=== PATIENT | female | born 1995 | race Caucasian/White ===

== ENCOUNTER → 2018-03-13 13:47 | Outpatient (CLI) | payer OTHER, SELFPAY ==
[2018-03-13 14:58] LABS: Absolute Lymphocyte Count 1.61 X10^3/ul (0.83-4.51); Basophil# 0.02 X10^3/uL; Basophil% 0.2 % (0-1); Eosinophil# 0.04 X10^3/uL; Eosinophils% 0.5 % (0-5); Hematocrit 38.6 % (37-47); Hemoglobin 12.9 g/dl (12.0-15.0); Lymphocyte # 1.61 X10^3/ul (4.0); Mean Corp Hgb Conc 33.4 g/gl (32-36); Mean Corpuscular Hgb 29.9 pg (27.0-32.0); Mean Corpuscular Volume 89.6 fL (81-99); Mean Platelet Vol. 9.8 fl (6.2-12.0); Monocyte# 0.32 X10^3/uL; Neutrophil # 6.03 X10^3/uL (2.7-7.7); Neutrophil % 75.1 % (47-70); Platelet Count 268 K/mm3 (150-450); RBC Distribution Width CV 13.3 % (11.6-14.6); RBC Distribution Width SD 43.3 fl (35.1-43.9); Red Blood Count 4.31 M/mm3 (4.2-5.4)
[2018-03-13 15:02] LABS: POSITIVE COUNT NO; POSITIVE DIFFERENTIAL NO; POSITIVE MORPHOLOGY NO
[2018-03-13 16:10] LABS: HIV - WCH Non-Reactive (Nonreactive); Rubella IgG 72.3 IU/mL
[2018-03-13 19:39] LABS: Chlamydia Trachomatis by PCR Negative (Negative); Neisserai gonorrhoeae by PCR Negative (Negative); Probe Check PASS; Sample Adequacy Control PASS; Specimen Processing Control PASS
[2018-03-14 09:28] LABS: HEPATITIS B SURFACE AG Negative (Negative)
[2018-03-20 02:28] LABS: Rapid Plasmin Reagin (RPR) NONREACTIVE (NONREACTIVE)
== END ==
PROVIDERS: Family Provider Family Medicine; PCP Family Medicine; Visit Provider Obstetrics & Gynecology
DX: Z34.90 Encounter for supervision of normal pregnancy, unspecified, unspecified trimester (principal); Z12.4 Encounter for screening for malignant neoplasm of cervix
CPT/HCPCS: 36415; 85025; 86592; 86703; 86762; 86850; 86900; 87086; 87088; 87340; 87491; 87591; 88175; G0145

== ENCOUNTER → 2018-04-13 13:30 | Outpatient (CLI) | payer OTHER, SELFPAY | PROVIDERS: Family Provider Nurse Practitioner Family; PCP Nurse Practitioner Family; Referring Provider Obstetrics & Gynecology; Visit Provider Obstetrics & Gynecology | DX: Z34.81 Encounter for supervision of other normal pregnancy, first trimester (principal); Z31.430 Encounter of female for testing for genetic disease carrier status for procreative management | CPT/HCPCS: 36415 ==

== ENCOUNTER → 2018-05-26 09:08 | Outpatient (CLI) | payer OTHER, SELFPAY ==
--- NOTE | 2018-05-26 09:12 | US_ITS ---
STUDY: SECOND AND THIRD TRIMESTER OBSTETRICAL ULTRASOUND REASON FOR EXAM: Female, 22 years old. Routine survey. LMP: January 01, 2018. TECHNIQUE: Transabdominal TECHNICAL QUALITY: Adequate. PRIOR ULTRASOUND: None. FINDINGS: There is a single intrauterine fetus. The fetus is in a cephalic presentation. There is demonstrated cardiac activity with a heart rate of 153 bpm. There is a normal amniotic fluid volume. The largest amniotic fluid pocket measures 3.5 cm x 3.5 cm. The amniotic fluid index (JASON) is normal. The placenta is posterior in location and is not low lying. There are Grade 0 placental changes. The cervix measures 3.2 cm in length. The bilateral adnexal regions are normal. BIOMETRY: BPD: 4.69 cm: 20 weeks, 2 days HC: 18.01 cm: 20 weeks, 4 days AC: 15.15 cm: 20 weeks, 3 days FL: 3.27 cm: 20 weeks, 2 days CI: 74% FL/BPD: 70% FL/HC: FL/AC: 22% HC/AC: 1.19 age by current US: 20 weeks, 3 days. [place] by current US: October 10, 2018. Estimated weight: 345 grams, +/- 50 grams, 25 %. Age by LMP: 20 weeks, 5 days. [place] by LMP: October 08, 2018. ANATOMY: Gender: Female Cranium: Normal lateral ventricles. Normal choroid plexus. Normal cerebellum. Normal cisterna magna. Normal face, nose and lips. Chest: Normal 4-chamber heart. Abdomen/Pelvis: Normal diaphragm. Normal stomach. Normal abdominal wall. Normal cord insertion. Normal 3 vessel cord. Normal kidneys. Normal bladder. Spine: Normal cervical spine. Normal thoracic spine. Normal lumbar spine. Normal sacrum. Extremities: Normal bilateral upper extremities. Normal bilateral lower extremities. US/OB Anatomy Scan IMPRESSION: Single live intrauterine gestation with a mean gestational age of 20 weeks and 3 days. Electronically Signed: Nas Ferrell MD at 11:19 EST Tel [phone], Service support ,
--- NOTE | 2018-05-26 09:50 | US_ITS ---
STUDY: ULTRASOUND BREAST - RIGHT REASON FOR EXAM: Female, 22 years old. Palpable lump in the right breast. The patient is . TECHNIQUE: Axial and longitudinal images of the RIGHT breast were performed with a high resolution ultrasound transducer. COMPARISON: None. FINDINGS: RIGHT Breast: The patient presented with a palpable lump along the medial midportion of the breast. There is homogeneous fibroglandular tissue. No solid or cystic mass lesion is seen. US/Breast Limited Unilateral IMPRESSION: No sonographic abnormality is present. ASSESSMENT CATEGORY: BIRADS Category 1: Negative. A letter regarding these results will be sent to the patient by the facility within 30 days. Electronically Signed: Nas Ferrell MD at 13:12 EST Tel [phone], Service support ,
== END ==
PROVIDERS: Referring Provider Obstetrics & Gynecology; Visit Provider Obstetrics & Gynecology
DX: O99.89 Other specified diseases and conditions complicating pregnancy, childbirth and the puerperium (principal); N63.10 Unspecified lump in the right breast, unspecified quadrant; Z36.89 Encounter for other specified antenatal screening; Z3A.20 20 weeks gestation of pregnancy
CPT/HCPCS: 76642; 76805

== ENCOUNTER 2018-06-03 14:06 | Outpatient (CLI) | payer OTHER, SELFPAY ==
[2018-06-03 14:15] VITALS: BP 109/72; PULSE 88; RESP 18; TEMP 36.7; O2SAT 98; BMI 22.3
[2018-06-03] MEDS: Dextrose 5%-Lactated Ringers 1,000 ML 999 ML IV (14:21)
[2018-06-03] MEDS: Ondansetron 4 MG/2 ML Vial IV (14:21)
[2018-06-03] MEDS: proMETHazine 25 MG/ML Syringe 12.5 MG IV (15:32)
--- NOTE | 2018-06-03 16:28 | NURSING ---
A&O X3, STABLE, TRANSPORTED TO OB VIA WHEELCHAIR, REPORT GIVEN TO RN IN OB.
[2018-06-03] MEDS: Lactated Ringers 1,000 ML 1000 ML IV (16:35)
[2018-06-03 16:37] VITALS: BP 97/56; PULSE 83; RESP 15; TEMP 37.3; O2SAT 95
[2018-06-03 16:38] VITALS: BMI 22.8
--- NOTE | 2018-06-03 16:40 | NURSING ---
FHR 159; pt states that her n/v is better
[2018-06-03 17:06] LABS: Hematocrit 35.8 % (37-47); Mean Corp Hgb Conc 33.5 g/gl (32-36); Mean Corpuscular Hgb 30.1 pg (27.0-32.0); Mean Corpuscular Volume 89.7 fL (81-99); Mean Platelet Vol. 9.3 fl (6.2-12.0); Platelet Count 219 K/mm3 (150-450); RBC Distribution Width CV 13.7 % (11.6-14.6); Red Blood Count 3.99 M/mm3 (4.2-5.4); White Blood Count 12.7 K/mm3 (4.4-11.0)
[2018-06-03 17:08] LABS: Scan Indicated on CBC? Y/N NO
[2018-06-03 17:23] LABS: Color, Urine Yellow (Yellow); Glucose, Dipstick 1000 mg/dl (Normal); Leukocyte Esterase-Dipstick Negative /ul (Negative); Nitrite-Dipstick Negative (Negative); Occult Blood-Urine Negative /ul (Negative); Protein-Dipstick Negative (Negative); Specific Gravity, Urine 1.015 (1.002-1.030); Urine Bilirubin Dipstick Negative (Negative); Urine Clarity Clear (Clear); Urine Urobilinogen Normal (Normal)
[2018-06-03] MEDS: Metoclopramide 10 MG/2 ML Vial IV (17:30)
[2018-06-03 17:42] LABS: Ketone-Dipstick 150 mg/dl (Negative)
[2018-06-03 17:51] LABS: BUN 9 mg/dL (7-18); Estimated Creatinine Clearance 120.63 ml/min; Glucose 126 mg/dL (74-106)
[2018-06-03 17:52] LABS: ALB/GLOB Ratio 0.8 RATIO (0.9-2.4); AST(SGOT) 11 U/L (15-37); Alanine Aminotransfer ALT/SGPT 17 U/L (13-56); Alkaline Phosphatase 56 U/L (45-117); Anion Gap 9 (5-15); BUN/Creat Ratio 14.9 RATIO (10-20); Calcium,Total 8.4 mg/dL (8.5-10.1); Chloride 106 mmol/L (98-107); EST Glomerular Filtration Rate 130 mL/min (>60); Est Glom Filt Rate - Afr Amer 157 mL/min (>60); Globulin 3.6 g/dL (2.2-4.2); Potassium 3.5 mmol/L (3.5-5.1); Protein, Total 6.6 g/dL (6.4-8.2); Sodium Level 140 mmol/L (136-145)
--- NOTE | 2018-06-03 18:14 | NURSING ---
1800 pt feeling better would like to go home; tolerated ice chips; discharge order received; sl dc'ed; waiting for ride
--- NOTE | 2018-06-05 02:22 | OB.TRI.NOTE ---
- Problem List (1) Nausea and vomiting during Status: Acute Comment: phenergan History of Present Illness Date of Service: 06/03/18 Reason For Visit: DEHYDRATION,HYPEREMESIS History of Present Illness: presented with nause and vomiting, refractory to initial antiemetics Allergies No Known Allergies Allergy (Verified 05/08/18 10:28) - Pertinent Past Medical History Surgical History: Past Surgical History (Last Reviewed 05/08/18 @ 10:28 by Chery Miguel) delivery delivered Laboratory Studies: Laboratory Tests 06/03/18 06/03/18 06/03/18 Range/Units 16:45 16:45 16:45 WBC 12.7 H (4.4-11.0) K/mm3 RBC 3.99 L (4.2-5.4) M/mm3 Hgb 12.0 (12.0-15.0) g/dl Hct 35.8 L (37-47) % MCV 89.7 (81-99) fL MCH 30.1 (27.0-32.0) pg MCHC 33.5 (32-36) g/gl RDW 13.7 (11.6-14.6) % RDW Differential 45.0 H (35.1-43.9) fl Plt Count 219 (150-450) K/mm3 MPV 9.3 (6.2-12.0) fl Sodium 140 (136-145) mmol/L Potassium 3.5 (3.5-5.1) mmol/L Chloride 106 (98-107) mmol/L Carbon Dioxide 25.0 (21.0-32.0) mmol/L Anion Gap 9 (5-15) BUN 9 (7-18) mg/dL Creatinine 0.60 (0.55-1.02) mg/dL Estim Creat Clear Calc 120.63 ml/min Est GFR (MDRD) Af Amer 157 (>60) mL/min Est GFR (MDRD) Non-Af 130 (>60) mL/min BUN/Creatinine Ratio 14.9 (10-20) RATIO Glucose 126 H (74-106) mg/dL Calcium 8.4 L (8.5-10.1) mg/dL Total Bilirubin 0.50 (0.20-1.00) mg/dL AST 11 L (15-37) U/L ALT 17 (13-56) U/L Alkaline Phosphatase 56 (45-117) U/L Total Protein 6.6 (6.4-8.2) g/dL Albumin 3.0 L (3.2-5.0) g/dL Globulin 3.6 (2.2-4.2) g/dL Albumin/Globulin Ratio 0.8 L (0.9-2.4) RATIO Urine Color Yellow (Yellow) Urine Clarity Clear (Clear) Urine pH 6.0 (5.0 - 8.0) Ur Specific [place] 1.015 (1.002-1.030) Urine Protein Negative (Negative) mg/dl Urine Glucose (UA) 1000 H (Normal) mg/dl Urine Ketones 150 H (Negative) mg/dl Urine Occult Blood Negative (Negative) /ul Urine Nitrite Negative (Negative) Urine Bilirubin Negative (Negative) mg/dL Urine Urobilinogen Normal (Normal) mg/dl Ur Leukocyte Esterase Negative (Negative) /ul Physical Exam Vitals: Vital Signs Temp Pulse Resp BP Pulse Ox 99.1 F 83 15 97/56 L 95 06/03/18 16:37 06/03/18 16:37 06/03/18 16:37 06/03/18 16:37 06/03/18 16:37 NST - FHR Rate Baby A Baseline: 150s Impression/Plan nausea and vomiting of - improved with additional IVFs and reglan. received phenergan and zofran at infusion suite. dc home.
--- OUTSIDE RECORDS SUMMARY | 2018-07-29 23:51 | XMS RPT_ITS ---
:1995 Author Organization OHIP Support Name Relationship Address Phone LOREE MAZARIEGOS Unavailable [address] + [place] [address] AVELINO, STEFANO/ALEIDA Unavailable Unavailable + UE Unavailable Unavailable Unavailable LOREE MAZARIEGOS Unavailable [address] + [place] [address] AVELINO, STEFANO/ALEIDA Unavailable . + ., [place] . UE Unavailable Unavailable Unavailable LOREE MAZARIEGOS Unavailable [address] + [place] [address] AVELINO, STEFANO/ALEIDA Unavailable Unavailable + UE Unavailable Unavailable Unavailable LOREE MAZARIEGOS Unavailable [address] + [place] [address] AVELINO, STEFANO/ALEIDA Unavailable Unavailable + UE Unavailable Unavailable Unavailable LOREE MAZARIEGOS Unavailable [address] + [place] [address] AVELINO, STEFANO/ALEIDA Unavailable Unavailable + UE Unavailable Unavailable Unavailable LOREE MAZARIEGOS Unavailable [address] + [place] [address] AVELINO, STEFANO/ALEIDA Unavailable Unavailable + UE Unavailable Unavailable Unavailable LOREE MAZARIEGOS Unavailable [address] + [place] [address] AVELINO, STEFANO/ALEIDA Unavailable [address] + [place] [address] UE Unavailable Unavailable Unavailable LOREE MAZARIEGOS Unavailable [address] + [place] [address] AVELINO, STEFANO/ALEIDA Unavailable Unavailable + [place] [address] UE Unavailable Unavailable Unavailable LOREE MAZARIEGOS Unavailable [address] + [place] [address] AVELINO, STEFANO/ALEIDA Unavailable [address] + [place] [address] UE Unavailable Unavailable Unavailable LOREE MAZARIEGOS Unavailable [address] + [place] [address] AVELINO, STEFANO/ALEIDA Unavailable [address] + [place] [address] UE Unavailable Unavailable Unavailable LOREE MAZARIEGOS Unavailable [address] + [place] [address] AVELINO, STEFANO/ALEIDA Unavailable [address] + [place] [address] UE Unavailable Unavailable Unavailable LOREE MAZARIEGOS Unavailable [address] + [place] [address] AVELINO, STEFANO/ALEIDA Unavailable [address] + [place] [address] UE Unavailable Unavailable Unavailable LOREE MAZARIEGOS Unavailable [address] + [place] [address] AVELINO, STEFANO/ALEIDA Unavailable [address] + [place] [address] UE Unavailable Unavailable Unavailable LOREE MAZARIEGOS Unavailable [address] + [place] [address] AVELINO, STEFANO/ALEIDA Unavailable [address] + [place] [address] UE Unavailable Unavailable Unavailable Care Team Providers Name Role Phone Alma Sinha Attending Unavailable TONY, DOUGLAS Referring Unavailable TONY, DOUGLAS Primary Care Unavailable Alma Sinha Attending Unavailable TONY, DOUGLAS Referring Unavailable Alma Sinha Attending Unavailable TONY, DOUGLAS Referring Unavailable TONY, DOUGLAS Primary Care Unavailable Alma Sinha Attending Unavailable TONY, DOUGLAS Referring Unavailable TONY, DOUGLAS Primary Care Unavailable Marcanthony, Alma Attending Unavailable Marcanthony, Alma Referring Unavailable TONY, DOUGLAS Primary Care Unavailable Marcanthony, Alma Attending Unavailable TONY, DOUGLAS Referring Unavailable Marcanthony, Alma Attending Unavailable Marcanthony, Alma Referring Unavailable RafatAntony ptael QUALITY CLOTH TESTER-C Primary Care Unavailable Marcanthony, Alma Attending Unavailable TONY, DOUGLAS Referring Unavailable Marcanthony, Alma Attending Unavailable Marcanthony, Alma Referring Unavailable Primay Care Physicia, No Primary Care Unavailable Marcanthony, Alma Attending Unavailable Marcanthony, Alma Referring Unavailable Primay Care Physicia, No Primary Care Unavailable [place] Lake[place]y mendez QUALITY CLOTH TESTER-C Primary Care Unavailable Marcanthony, Alma Attending Unavailable Marcanthony, Alma Referring Unavailable [place]ver, Kayla Consulting Unavailable Marcanthony, Alma Attending Unavailable Marcanthony, Alma Referring Unavailable RafatAntnoy patel QUALITY CLOTH TESTER-C Primary Care Unavailable Grover, Kayla Consulting Unavailable Marcanthony, Alma Consulting Unavailable Grover, Kayla Attending Unavailable TONY, DOUGLAS Referring Unavailable [place], Kayla Attending Unavailable Antony Douglass QUALITY CLOTH TESTER-C Primary Care Unavailable [place], Kayla Referring Unavailable PROBLEMS PROBLEMS DATE TYPE CONDITION / CODE ATTENDING STATUS SOURCE 06/17/2018 Unknown Z34.90 - Kayla Ness Active [place] Encounter for Community supervision of Hospital normal , Repository unspecified, unspecified trimester / Z34.90(ICD-10) 06/01/2018 Unknown N63.10 - Marcanthony, Active [place] Unspecified lump [facility] in the right [facility] breast, Repository unspecified quadrant / N63.10(ICD-10) 05/08/2018 Unknown Z98.891 - History Marcanthony, Active [place] of uterine scar [facility] from previous Hospital surgery / Repository Z98.891(ICD-10) 05/08/2018 Unknown O09.899 - Marcanthony, Active [place] Supervision of [facility] other high risk Hospital pregnancies, Repository unspecified trimester / O09.899(ICD-10) 05/08/2018 Unknown Z67.91 - Marcanthony, Active [place] Unspecified blood [facility] type, Rh negative Hospital / Z67.91(ICD-10) Repository 05/08/2018 Unknown O21.9 - Vomiting Ernestine, Active [place] of , [facility] unspecified / Hospital O21.9(ICD-10) Repository 05/08/2018 Unknown Z3A.18 - 18 weeks Ernestine, Active [place] gestation of [facility] / Hospital Z3A.18(ICD-10) Repository 05/08/2018 Unknown N63.0 - Ernestine, Active [place] Unspecified lump [facility] in unspecified Hospital breast / Repository N63.0(ICD-10) 05/26/2018 Unknown Z34.81 - Ernestine, Active [place] Encounter for [facility] supervision of Hospital other normal Repository , first trimester / Z34.81(ICD-10) 05/26/2018 Unknown Z31.430 - Ernestine, Active [place] Encounter of [facility] female for Hospital testing for Repository genetic disease carrier status for procreative management / Z31.430(ICD-10) 05/06/2018 Unknown Z3A.10 - 10 weeks Ernestine, Active [place] gestation of [facility] / Hospital Z3A.10(ICD-10) Repository 05/06/2018 Unknown Z12.4 - Encounter Ernestine, Active [place] for screening for [facility] malignant Hospital neoplasm of Repository cervix / Z12.4(ICD-10) 02/03/2018 Unknown Z31.69 - Ernestine, Active [place] Encounter for [facility] general Hospital counseling and Repository advice on procreation / Z31.69(ICD-10) PROCEDURES PROCEDURES No Procedure Records FoundRESULTS RESULTS CT/NG [facility] BY PCR Collected: 06/11/2018 Status: F Source: [place] 8:34 PM [facility] REPOSITORY TYPE CODE TESTS RESULT OUT OF RANGE REFERENCE UNITS LAB L8200.2100 Negative Normal Chlam Negative Trac PCR LAB L8200.2200 Negative Normal NG by Negative PCR Performed By: #### L8200.1999 #### [facility] [place], [address] [facility] OFFICE VISIT Observed: 06/11/2018 Status: F Source: [place] REPORT 11:42 AM [facility] REPOSITORY [facility] [address] [place] [address] OFFICE VISIT Date of Service: 06/11/18 MR#: [id number] Acct: [id number] Name: HIPOLITO MAZARIEGOS Rep #: [id number] : 1995 Provider: MARYAN Ness Age/Sex: 22/F Location: [facility] Status: Signed Intake Vital Signs06/11/18 Body Mass Index (BMI) 22.8 06/11/18 Height 5 ft 3 in 06/11/18 Weight: 135 lb 6 oz 06/11/18 Body Mass Index (BMI) 24.0 06/11/18 Blood Pressure 102/68 Intake Visit Reasons: 22 weeks 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 Is patient in pain?: No Allergies No Known Allergies Allergy (Verified 06/11/18 11:22) Medications docosahexanoic acid 200 mg capsule 1 mg PO DAILY 02/20/18 [History Confirmed 06/11/18] ondansetron HCl 4 mg tablet 4 mg PO BID-TID PRN #60 tab 06/03/18 [Rx Confirmed 06/11/18] Metoclopramide [Reglan] 10 mg PO 4X/DAY #90 tab 06/05/18 [Rx Confirmed 06/11/18] Last Menstral Period: 01/01/18 Zika: Zika virus screening: Negative : No PFSH PFSH Surgical History delivery delivered (Acute) Family History Mother Heart disease Diabetes Social History Smoking Status: Smoker, status unknown alcohol intake: never substance use type: does not use caffeine: No what type of physical activity do you participate in: walking frequency: 3-4 times per week seatbelt use: always do you feel safe at home: Yes additional social history: [place]e- Self Employed [employer] Pregancy History 2 Elective abortions Hx Para 1 Spontaneous abortions Past Pregnancies Del. DateName GA/Weeks Outcome Route Bth WeighInfant GeLabor LgtAnesthesiDel LocatProvider FOB t n h a n Delivery Date: 12/11/15 On 03/13/18 @ 13:19 Alma Sinha breech. HPI 22 weeks: Details: HIPOLITO MAZARIEGOS is a 22 year old who presents for routine OB visit. OB Visit [place] Calculator Estimated Delivery Date 10/08/18 Based on LMP (certain) 01/01/18 Current WG 23w 0d Number 1 Expected Delivery Route/Plan - uptodate education given Specific Issue/Plans flu vaccine: [] minichart given: [] tdap vaccine: [] rhogam: [] LARC form signed: [] labor support person: [] pain management: [] cut cord/dad catch: [] : [] PP control planned: [] special requests: [] Initial Weight: Not Recorded Date Weight BP Urine PFHR FuHt Pres MCTX DilatioFetal SVisit NProvideComment rot ov n t ote r s EGA Ef Gluco faced se 04/13/1126 lb 90/54 [id number] no vb c 8 2 oz e ramping 14 . doing w 4d Negati well ve Visit Notes Visit Date: 06/11/18 No Vb, LOF. Doing well Kayla Ness NP-C on 06/11/18 Visit Date: 05/08/18 no vb lof some fm no regular cramping co right breast lump Alma Sinha MD on 05/08/18 Visit Date: 04/13/18 no vb cramping. doing well Alma Sinha MD on 04/13/18 ACOG First Trimester First Trimester: Desire for , Alcohol, Tobacco Cessation, Illicit/Recreational Drug/Substance Use, Intimate Partner Violence, Barriers to care, Unstable Housing, Communication Barriers, Environmental/Work Hazards, Anticipated Course of Care, Toxoplasmosis Precations, Use of Any medications, Sexual activity, Exercise, Dental Care, Sauna/Hot tub use, Seat Belt use, Childbirth classes/Hospital facilities, , Travel, Indications for US and Screening for Aneuploidy Diagnostics Diagnostics Labs Blood Type AB NEGATIVE 03/13/18 Antibody Screen NEGATIVE 03/13/18 Hct 35.8 % (37-47) L 06/03/18 Hgb 12.0 g/dl (12.0-15.0) 06/03/18 Obstetrics Ultrasound 05/26/18 Rubella IgG Antibody 72.3 IU/mL 03/13/18 RPR NONREACTIVE (NONREACTIVE) 03/13/18 Hep Bs Antigen Negative (Negative) 03/13/18 Chlam trachomat DNA PCR Cancelled 03/13/18 N.gonorrhoeae DNA (PCR) Cancelled 03/13/18 Glucose 1 Hr 50 gm 108 mg/dL (70-140) 09/19/15 Group B Strep DNA Negative (Negative) 11/17/15 Miscellaneous Test 04/13/18 Details: HIV: Urine Culture: Sequential Screen: NIPT Screen: Results [id number] Office Urine Glucose Negative Last Edit by Olga Stewart on 06/11/18 11:27 Office Urine Protein Negative Last Edit by Olga Stewart on 06/11/18 11:27 Assessment AND Plan Problems 1. Encounter for supervision of other normal in first trimester Z34.81 PRR (urine gc/c) [place] 10/08/18. Was going to look up sex of baby online with . PRASHANT Ortiz Loree 2. 23 weeks gestation of Z3A.23 carrier screening declined. NIPT normal. desires NTD screening. 3. Rh negative state in antepartum period O09.899; Z67.91 rhogam at 28 weeks and at delivery, PRN 4. Nausea and vomiting during O21.9 phenergan 5. History of section Z98.891 planning in future Plan Orders placed: urine GCC Reviewed of labor precautions, movement/kick counts ACOG trimester education reviewed and updated See problem list details for updated plan of care Gestational age appropriate handout given RTO: 4 weeks Orders Orders: Coding Level of Care Code OB Routine Diagnoses Encounter for supervision of other normal in first trimester Z34.81 Normal : other normal Trimester: first trimester 23 weeks gestation of Z3A.23 Weeks of gestation: 23 weeks Rh negative state in antepartum period O09.899; Z67.91 Nausea and vomiting during O21.9 History of section Z98.891 06/11/18 1142 <Electronically signed by Kayla CARTER> Date Kayla CARTER Cosigner Signature: Date (if applicable) CC: CBC-COMPLETE BLOOD CNT Collected: 06/03/2018 Status: F Source: [place] NO DIFF 4:45 PM [facility] REPOSITORY TYPE CODE TESTS RESULT OUT OF RANGE REFERENCE UNITS LAB L100.1000 4.4-11.0 K/mm3 High WBC 12.7 LAB L100.1200 4.2-5.4 M/mm3 Low RBC 3.99 LAB L100.1300 12.0-15.0 g/dl Normal HGB 12.0 LAB L100.1400 37-47 % Low HCT 35.8 LAB L100.1500 81-99 fL Normal MCV 89.7 LAB L100.1600 27.0-32.0 pg Normal MCH 30.1 LAB L100.1700 32-36 g/gl Normal MCHC 33.5 LAB L100.1810 11.6-14.6 % Normal RDW CV 13.7 LAB L100.1820 35.1-43.9 fl High RDW SD 45.0 LAB L100.1900 150-450 K/mm3 Normal PLT 219 LAB L100.2000 6.2-12.0 fl Normal MPV 9.3 Performed By: #### L100.0500, L500.4050 #### [facility] [address] [place], [address] COMPREHENSIVE METABOLIC Collected: 06/03/2018 Status: F Source: [place] PROFIL 4:45 PM [facility] REPOSITORY TYPE CODE TESTS RESULT OUT OF RANGE REFERENCE UNITS LAB L501.0100 74-106 mg/dL High GLU 126 Result Comment: Fasting Glucose result greater than or equal to 126 mg/dL suggests DIABETES MELLITUS per A.D.A. criteria. Please note revised GLUCOSE reference range effective 2017. LAB L501.1000 7-18 mg/dL Normal BUN 9 LAB L501.1100 0.55-1.02 mg/dL Normal CREAT,SERUM 0.60 Result Comment: The validity of the calculated GFR AND GFRAA in patients over 70 years has not been determined. Clinical correlation is essential. LAB L501.1110 >60 mL/min Normal EST GFR 130 Result Comment: Non- GFR Calc LAB L501.1115 >60 mL/min Normal EST GFR - AA 157 Result Comment: GFR Calc LAB L501.1255 ml/min Normal Estimated CRCL 120.63 LAB L501.1300 10-20 RATIO BUN/CRE Normal 14.9 LAB L501.1500 6.4-8. g/dL 2 T PROT Normal 6.6 LAB L501.1800 3.2-5. g/dL Low 0 ALB 3.0 LAB L501.1950 2.2-4. g/dL 2 GLOB Normal 3.6 LAB L501.2000 0.9-2. RATIO Low 4 A/G 0.8 LAB L501.2200 8.5-10 mg/dL Low .1 CA 8.4 LAB L501.4100 15-37 U/L Low AST 11 LAB L501.4305 45-117 U/L ALK P Normal 56 LAB L501.4405 13-56 U/L ALT Normal 17 LAB L501.4600 0.20-1 mg/dL .00 T BILI Normal 0.50 LAB L501.5300 136-14 mmol/L 5 NA Normal 140 LAB L501.5600 3.5-5. mmol/L 1 K Normal 3.5 LAB L501.5900 98-107 mmol/L CL Normal 106 LAB L501.6100 21.0-3 mmol/L 2.0 CO2 Normal 25.0 LAB L501.6200 5-15 GAP Normal 9 Performed By: #### L100.0500, L500.4050 #### [facility] [address] [place], [address] URINALYSIS, ROUTINE Collected: 06/03/2018 Status: F Source: [place] (DIPSTICK) 4:45 PM [facility] REPOSITORY Order Comment: How was Urine Obtained? QUALITY WORKER TO SPECIFY TYPE CODE TESTS RESULT OUT OF RANGE REFERENCE UNITS LAB L400.3000 Yellow COLOR Normal Yellow LAB L400.3050 Clear Normal CLARITY Clear LAB L400.3200 Normal mg/dl High GLUCOSE, UR 1000 LAB L400.3300 Negative mg/dL Normal BILIRUBIN URINE Negative LAB L400.3400 Negative mg/dl High KETONE UR 150 Result Comment: CRITICAL VALUE *H CRITICAL VALUE VERIFIED. CALLED TO JOEY MAZARIEGOS 06/03/18 1740 Raymond Escobar. RESULTS READ BACK BY JOEY . LAB L400.3465 1.002-1.030 Normal SP.GR. DIPSTX 1.015 LAB L400.3550 5.0 - 8.0 pH Normal UR 6.0 LAB L400.3600 Negative mg/dl Normal PROT DIPSTX Negative LAB L400.3700 Normal mg/dl Normal UROBILI Normal LAB L400.3750 Negative Normal NITRITE UR Negative LAB L400.3780 Negative /ul Normal OCCULT Negative BLOOD-UR LAB L400.3800 Negative /ul Normal LEUK ESTERASE Negative Performed By: #### L400.2010 #### [facility] [address] [place], [address] BREAST LIMITED Observed: 05/26/2018 Status: F Source: [place] UNILATERAL 9:50 AM [facility] REPOSITORY [facility] Imaging Services [address] [place] [address] Breast Limited Unilateral MR#: [id number] Acct: [id number] Name: STANLEY MAZARIEGOSManasa Christopher Rep #: [id number] : 1995 F 22 From: Nas Ferrell MD PCP: Care Physician, No Primary Status: REG CLI Study: Breast Limited Unilateral Date of Exam: 05/26/18 Exam# [id number] Ordering Dr: Alma Sinha MD STUDY: ULTRASOUND BREAST - RIGHT REASON FOR EXAM: Female, 22 years old. Palpable lump in the right breast. The patient is . TECHNIQUE: Axial and longitudinal images of the RIGHT breast were performed with a high resolution ultrasound transducer. COMPARISON: None. FINDINGS: RIGHT Breast: The patient presented with a palpable lump along the medial midportion of the breast. There is homogeneous fibroglandular tissue. No solid or cystic mass lesion is seen. US/Breast Limited Unilateral IMPRESSION: No sonographic abnormality is present. ASSESSMENT CATEGORY: BIRADS Category 1: Negative. A letter regarding these results will be sent to the patient by the facility within 30 days. Electronically Signed: Nas Ferrell MD at 13:12 EST Tel [phone], Service support , CC: No Primary Care Physician; Alma Sinha MD Commercial Baking Teacher: Signed OB ANATOMY SCAN Observed: 05/26/2018 Status: F Source: [place] 9:12 AM [facility] REPOSITORY [facility] Imaging Services [address] [place] [address] OB Anatomy Scan MR#: [id number] Acct: [id number] Name: HIPOLITO MAZARIEGOS Rep #: [id number] : 1995 F 22 From: Nas Ferrell MD PCP: Care Physician, No Primary Status: REG CLI Study: OB Anatomy Scan Date of Exam: 05/26/18 Exam# [id number] Ordering Dr: Alma Sinha MD STUDY: SECOND AND THIRD TRIMESTER OBSTETRICAL ULTRASOUND REASON FOR EXAM: Female, 22 years old. Routine survey. LMP: January 01, 2018. TECHNIQUE: Transabdominal TECHNICAL QUALITY: Adequate. PRIOR ULTRASOUND: None. FINDINGS: There is a single intrauterine fetus. The fetus is in a cephalic presentation. There is demonstrated cardiac activity with a heart rate of 153 bpm. There is a normal amniotic fluid volume. The largest amniotic fluid pocket measures 3.5 cm x 3.5 cm. The amniotic fluid index (JASON) is normal. The placenta is posterior in location and is not low lying. There are Grade 0 placental changes. The cervix measures 3.2 cm in length. The bilateral adnexal regions are normal. BIOMETRY: BPD: 4.69 cm: 20 weeks, 2 days HC: 18.01 cm: 20 weeks, 4 days AC: 15.15 cm: 20 weeks, 3 days FL: 3.27 cm: 20 weeks, 2 days CI: 74% FL/BPD: 70% FL/HC: FL/AC: 22% HC/AC: 1.19 age by current US: 20 weeks, 3 days. [place] by current US: October 10, 2018. Estimated weight: 345 grams, +/- 50 grams, 25 %. Age by LMP: 20 weeks, 5 days. [place] by LMP: October 08, 2018. ANATOMY: Gender: Female Cranium: Normal lateral ventricles. Normal choroid plexus. Normal cerebellum. Normal cisterna magna. Normal face, nose and lips. Chest: Normal 4-chamber heart. Abdomen/Pelvis: Normal diaphragm. Normal stomach. Normal abdominal wall. Normal cord insertion. Normal 3 vessel cord. Normal kidneys. Normal bladder. Spine: Normal cervical spine. Normal thoracic spine. Normal lumbar spine. Normal sacrum. Extremities: Normal bilateral upper extremities. Normal bilateral lower extremities. US/OB Anatomy Scan IMPRESSION: Single live intrauterine gestation with a mean gestational age of 20 weeks and 3 days. Electronically Signed: Nas Ferrell MD at 11:19 EST Tel [phone], Service support , CC: No Primary Care Physician; Alma Sinha MD Commercial Baking Teacher: Signed [facility] OFFICE VISIT Observed: 05/08/2018 Status: F Source: [place] REPORT 11:18 AM [facility] [address] [place] [address] OFFICE VISIT Date of Service: 05/08/18 MR#: [id number] Acct: [id number] Name: HIPOLITO MAZARIEGOS Rep #: [id number] : 1995 Provider: Alma Sinha MD Age/Sex: 22/F Location: [facility] Status: Signed Intake Vital Signs05/08/18 Height 5 ft 3 in 05/08/18 Weight: 131 lb 6 oz 05/08/18 Body Mass Index (BMI) 23.3 05/08/18 Blood Pressure 118/58 L Intake Visit Reasons: 18 weeks 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 Is patient in pain?: No Allergies No Known Allergies Allergy (Verified 05/08/18 10:28) Medications docosahexanoic acid 200 mg capsule mg PO 02/20/18 [History Confirmed 05/08/18] ondansetron HCl 4 mg tablet 4 mg PO BID-TID PRN #60 tab 04/09/18 [Rx Confirmed 05/08/18] Last Menstral Period: 01/01/18 Zika: Zika virus screening: Negative : No PFSH PFSH Surgical History delivery delivered (Acute) Family History Mother Heart disease Diabetes Social History Smoking Status: Smoker, status unknown alcohol intake: never substance use type: does not use caffeine: No what type of physical activity do you participate in: walking frequency: 3-4 times per week seatbelt use: always do you feel safe at home: Yes additional social history: Loree- Self Employed [employer] Pregancy History 2 Elective abortions Hx Para 1 Spontaneous abortions Past Pregnancies Del. DateName GA/Weeks Outcome Route Bth WeighInfant GeLabor LgtAnesthesiDel LocatProvider FOB t n h a n Delivery Date: 12/11/15 On 03/13/18 @ 13:19 Alma Sinha breech. HPI 18 weeks: Details: HIPOLITO MAZARIEGOS is a 22 year old who presents for routine OB visit. OB Visit [place] Calculator Estimated Delivery Date 10/08/18 Based on LMP (certain) 01/01/18 Current WG 18w 1d Number 1 Expected Delivery Route/Plan - uptodate education given Initial Weight: Not Recorded Date Weight BP Urine PrFHR FuHt Pres MoCTX DilationFetal StVisit NoProviderComments E ot v te GA G Effac lucose ed Visit Notes Visit Date: 05/08/18 no vb lof some fm no regular cramping co right breast lump Alma Sinha MD on 05/08/18 Visit Date: 04/13/18 no vb cramping. doing well Alma Sinha MD on 04/13/18 ACOG First Trimester First Trimester: Desire for , Alcohol, Tobacco Cessation, Illicit/Recreational Drug/Substance Use, Intimate Partner Violence, Barriers to care, Unstable Housing, Communication Barriers, Environmental/Work Hazards, Anticipated Course of Care, Toxoplasmosis Precations, Use of Any medications, Sexual activity, Exercise, Dental Care, Sauna/Hot tub use, Seat Belt use, Childbirth classes/Hospital facilities, , Travel, Indications for US and Screening for Aneuploidy Diagnostics Diagnostics Labs Blood Type AB NEGATIVE 03/13/18 Antibody Screen NEGATIVE 03/13/18 Hct 38.6 % (37-47) 03/13/18 Hgb 12.9 g/dl (12.0-15.0) 03/13/18 Rubella IgG Antibody 72.3 IU/mL 03/13/18 RPR NONREACTIVE (NONREACTIVE) 03/13/18 Hep Bs Antigen Negative (Negative) 03/13/18 Chlam trachomat DNA PCR Negative (Negative) 04/11/15 N.gonorrhoeae DNA (PCR) Negative (Negative) 04/11/15 Glucose 1 Hr 50 gm 108 mg/dL (70-140) 09/19/15 Group B Strep DNA Negative (Negative) 11/17/15 Miscellaneous Test Pending 04/13/18 Details: HIV: Urine Culture: Sequential Screen: NIPT Screen: Exam Chest Breast inspection: abnormal inspection of the breast (right inner on breast bone 1 cm fluctuant firm mass) Results [id number] Office Urine Glucose Negative Last Edit by Chery Miguel on 05/08/18 10:47 Office Urine Protein Negative Last Edit by Chery Miguel on 05/08/18 10:47 Assessment AND Plan Problems 1. Rh negative state in antepartum period O09.899; Z67.91 rhogam at 28 weeks and at delivery, PRN 2. History of delivery Z98.891 planning in future 3. Nausea/vomiting in O21.9 phenergan 4. 18 weeks gestation of Z3A.18 carrier screening declined. NIPT normal. desires NTD screening. 5. Encounter for supervision of other normal in first trimester Z34.81 PRR (urine gc/c) [place] 10/08/18. Was going to look up sex of baby online with . PRASHANT Ortiz Loree 6. Breast mass N63.0 Plan breast ultrasound ordered ACOG trimester education reviewed and updated. see problem list details for updated plan management information and see below for orders placed at this visit. GA appropriate handout given. Orders Orders: Coding Level of Care Code OB Routine Diagnoses Rh negative state in antepartum period O09.899; Z67.91 History of delivery Z98.891 Nausea/vomiting in O21.9 18 weeks gestation of Z3A.18 Weeks of gestation: 18 weeks Encounter for supervision of other normal in first trimester Z34.81 Normal : other normal Trimester: first trimester Breast mass N63.0 05/08/18 1118 <Electronically signed by Alma Sinha MD> Date Alma Sinha MD Cosigner Signature: Date (if applicable) CC: MISCELLANEOUS LAB Collected: 04/13/2018 Status: F Source: [place] PROCEDURE 1:40 PM [facility] REPOSITORY Order Comment: Comments: SEND OUT PANORAMA Test(s) Ordered: SEND OUT PANORAMA TYPE CODE TESTS RESULT OUT OF RANGE REFERENCE UNITS LAB L801.1541 Normal [facility] [place] [facility] LAB TEST Result Comment: Sent directly to testing facility per ordering physician. @ 05/26/18 1410 MYOUNG Performed By: #### L801.1541 #### [facility] [address] [place], [address] [facility] OFFICE VISIT Observed: 04/13/2018 Status: F Source: [place] REPORT 1:21 PM [facility] REPOSITORY [facility] 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 [place] 5 [facility] ing:OPUS Repository 05/26/2018 [id number] Amb[place] 6 [facility] ing:OPUS Repository 05/08/2018/ [id number] Ambulatory BMSBuilding:B [place] 8 1 [facility] Repository 04/13/2018 [id number] Amb[place] [facility] ing:LAB Repository 04/13/2018/ [id number] Ambulatory BMSBuilding:B [place] 8 9 [facility] Repository 03/13/2018 [id number] Amb[place] [facility] ing:LAB Repository 03/13/2018/ [id number] Ambulatory BMSBuilding:B [place] 8 1 [facility] Repository 02/27/2018 [id number] Ambulatory BMSBuilding:B [place] 8 [facility] Repository 02/20/2018/ [id number] Ambulatory BMSBuilding:B [place] 8 7 [facility] Repository 07/29/2017/ [id number] Ambulatory BMSBuilding:B [place] 8 7 [facility] Repository PAYERS PAYERS ENCOUNTER GUARANTOR PAYER SUBSCRIBER SOURCE 06/11/2018 HIPOLITO R Primary HIPOLITO R [place] [id number] Insurance:CONGREGATIONAL MILLERDOB: [facility] [id number] [facility] Number: Repository [id number]: 330 [id number] [phone] (HP) Date: [address] [address]QC: 06/11/2018 Secondary NOT GIVENUNK Brent Insurance:SELF PAY [facility] Number: Effective Repository Date:2018-06-11 06/11/2018 HIPOLITO R Primary HIPOLITO R [place] [id number] Insurance:CONGREGATIONAL MILLERDOB: [facility] [id number] [facility] Number: Repository [id number]: 330 [id number] [phone] () Date: [address] [address]KC: 06/11/2018 Secondary NOT GIVENUNK [place] Insurance:SELF PAY [facility] Number: Effective Repository Date:2018-05-18 06/05/2018 HIPOLITO R Primary HIPOLITO R [place] [id number] Insurance:CONGREGATIONAL MILLERDOB: [id number] Number: Repository [id number]: 330 [id number] [phone] (HP) Date: [address] [address]BU: 06/05/2018 Secondary NOT GIVENUNK [place] Insurance:SELF PAY [facility] Number: Effective Repository Date:2018-06-05 06/03/2018 HIPOLITO R Primary HIPOLITO R [place] [id number] Insurance:CONGREGATIONAL MILLERDOB: Community [facility] [id number] GROU[place] Number: Repository [id number]: 330 [id number] [phone] (HP) Date: [address] [address]FN: 06/03/2018 Secondary NOT GIVENUNK [place] Insurance:SELF PAY [facility] Number: Effective Repository Date:2018-06-03 05/26/2018 HIPOLITO R Primary HIPOLITO R [place] [id number] Insurance:CONGREGATIONAL MILLERDOB: [facility] [id number] [place] Number: Repository [id number]: 330 [id number] [phone] () Date: TW [address] [place] [address]GH: 05/26/2018 Secondary NOT GIVENUNK [place] Insurance:SELF PAY [facility] Number: Effective Repository Date:2018-05-08 05/26/2018 HIPOLITO R Primary HIPOLITO R [place] [id number] Insurance:CONGREGATIONAL MILLERDOB: [facility] [id number] [place] Number: Repository [id number]: 330 [id number] [phone] (HP) Date: TW [address] [place] [address]LL: 05/26/2018 Secondary NOT GIVENUNK [place] Insurance:SELF PAY [facility] Number: Effective Repository Date:2018-05-18 05/08/2018 HIPOLITO R Primary NOT GIVENUNK [place] [id number] Insurance:SELF PAY [place] Number: Effective Repository [id number]: (330) Date:2018-05-088179 (HP) 04/13/2018 HIPOLITO R Primary HIPOLITO R [place] [id number] Insurance:CONGREGATIONAL MILLERDOB: Community [facility] [id number] [place], [place] GROU[place]icy Number: Repository [id number]: 330 [id number] [phone] (HP) Date: [address] [address]IZ: 04/13/2018 Secondary NOT GIVENUNK [place] Insurance:SELF PAY [facility] Number: Effective Repository Date:2018-04-13 04/13/2018 HIPOLITO Primary HIPOLITO [place] [id number] Insurance:CONGREGATIONAL MILLERDOB: [facility] [id number] [place] GROU[place]icy Number: Repository [id number]: 330 [id number] [phone] (HP) Date: [address] [address]IP: 04/13/2018 Secondary NOT GIVENUNK [place] Insurance:SELF PAY [facility] Number: Effective Repository Date:2018-04-13 03/13/2018 HIPOLITO R Primary H[place]O R [place] [id number] Insurance:CONGREGATIONAL MILLERDOB: [facility] [id number] GROU[place] Number: Repository [id number]: (330) Effective [phone] (HP) Date: [address] [address]BC: 03/13/2018 Secondary NOT GIVENUNK [place] Insurance:SELF PAY [facility] Number: Effective Repository Date:2018-03-13 03/13/2018 HIPOLITO R Primary HIPOLITO R [place] [id number] Insurance:CONGREGATIONAL MILLERDOB: [facility] [id number] [place], [place] GROU[place]icy Number: Repository [id number]: (330) Effective -[phone] (HP) Date: [address] [address]JL: 03/13/2018 Secondary NOT GIVENUNK [place] Insurance:SELF PAY [facility] Number: Effective Repository Date:2018-03-13 02/27/2018 HIPOLITO Primary NOT GIVENUNK [place] [id number] Insurance:SELF PAY [place] Number: Effective Repository [id number]: (330) Date:[phone] (HP) 02/20/2018 HIPOLITO Primary NOT GIVENUNK [place] [id number] Insurance:SELF PAY [place] Number: Effective Repository [phone]: (330) Date:[phone] () 07/29/2017 HIPOLITO Primary NOT GIVENUNK [place] [id number] Insurance:SELF PAY [place] Number: Effective Repository [phone]: (330) Date:2017-07-291186 ()
== END 2018-06-03 18:30 | disposition home or self-care (01) ==
LOC: MEDOUTP 14:41 → WPOUT 16:22 → WP 16:23
PROVIDERS: Family Provider Nurse Practitioner Family; PCP Nurse Practitioner Family; Referring Provider Obstetrics & Gynecology; Visit Provider Obstetrics & Gynecology
DX: O21.9 Vomiting of pregnancy, unspecified (principal); Z3A.00 Weeks of gestation of pregnancy not specified; O34.219 Maternal care for unspecified type scar from previous cesarean delivery
CPT/HCPCS: 96361 ×2; 96374; 96375 ×2; 96376 ×2; 36415; 80053; 81002; 85027; 99218; J7120; A4216; G0378; J2405

== ENCOUNTER → 2018-06-11 20:30 | Outpatient (CLI) | payer OTHER, SELFPAY ==
[2018-06-11 11:23] VITALS: BMI 22.8
[2018-06-11 22:13] LABS: Chlamydia Trachomatis by PCR Negative (Negative); Neisserai gonorrhoeae by PCR Negative (Negative); Probe Check PASS; Sample Adequacy Control PASS; Specimen Processing Control PASS
== END ==
PROVIDERS: Referring Provider Nurse Practitioner Women's Health; Visit Provider Nurse Practitioner Women's Health
DX: Z34.90 Encounter for supervision of normal pregnancy, unspecified, unspecified trimester (principal)
CPT/HCPCS: 87491; 87591

== ENCOUNTER → 2018-07-15 10:09 | Outpatient (CLI) | payer OTHER, SELFPAY ==
[2018-07-15 10:03] VITALS: BMI 22.8
[2018-07-15 10:48] LABS: Absolute Lymphocyte Count 1.22 X10^3/ul (0.83-4.51); Absolute Neutrophil Count 7.3 X10^3/uL (2.0-7.7); Basophil# 0.01 X10^3/uL; Basophil% 0.1 % (0-1); Eosinophil# 0.04 X10^3/uL; Eosinophils% 0.4 % (0-5); Hematocrit 32.1 % (37-47); Hemoglobin 10.6 g/dl (12.0-15.0); Lymphocyte # 1.22 X10^3/ul (4.0); Lymphocyte % 13.6 % (19-41); Mean Corpuscular Hgb 30.3 pg (27.0-32.0); Mean Corpuscular Volume 91.7 fL (81-99); Monocyte# 0.38 X10^3/uL; Monocyte% 4.2 % (0-10); Neutrophil # 7.33 X10^3/uL (2.7-7.7); Neutrophil % 81.6 % (47-70); Platelet Count 219 K/mm3 (150-450); RBC Distribution Width CV 13.8 % (11.6-14.6); RBC Distribution Width SD 45.5 fl (35.1-43.9)
[2018-07-15 10:50] LABS: POSITIVE COUNT NO; POSITIVE DIFFERENTIAL NO; POSITIVE MORPHOLOGY NO
[2018-07-15 10:57] LABS: Glucose Challenge Gest 1H 50g 100 mg/dL (70-140)
== END ==
PROVIDERS: Family Provider Nurse Practitioner Family; PCP Nurse Practitioner Family; Visit Provider Nurse Practitioner Women's Health
DX: Z34.90 Encounter for supervision of normal pregnancy, unspecified, unspecified trimester (principal)
CPT/HCPCS: 36415; 82950; 85025

== ENCOUNTER → 2018-07-29 14:15 | Outpatient (CLI) | payer OTHER, SELFPAY ==
[2018-07-29 11:40] VITALS: BMI 22.8
[2018-07-29 16:15] LABS: Chlamydia Trachomatis by PCR Negative (Negative); Neisserai gonorrhoeae by PCR Negative (Negative); Probe Check PASS; Sample Adequacy Control PASS; Specimen Processing Control PASS
--- OUTSIDE RECORDS SUMMARY | 2018-09-30 14:47 | XMS RPT_ITS ---
:1995 Author Organization [place] Support Name Relationship Address Phone LOREE MAZARIEGOS Unavailable [address] + [facility] [place] [address] AVELINO, STEFANO/ALEIDA Unavailable Unavailable + [place] [address] UE Unavailable Unavailable Unavailable LOREE MAZARIEGOS Unavailable [address] + [facility] [place] [address] AVELINO, STEFANO/ALEIDA Unavailable 0 + [place] [address] UE Unavailable Unavailable Unavailable LOREE MAZARIEGOS Unavailable [address] + [facility] [place] [address] AVELINO, STEFANO/ALEIDA Unavailable Unavailable + UE Unavailable Unavailable Unavailable LOREE MAZARIEGOS Unavailable [address] + [place] [address] AVELINO, STEFANO/ALEIDA Unavailable 0 + [place] [address] UE Unavailable Unavailable Unavailable LOREE MAZARIEGOS Unavailable [address] + [facility] [place] [address] AVELINO, STEFANO/ALEIDA Unavailable Unavailable + UE Unavailable Unavailable Unavailable LOREE MAZARIEGOS Unavailable [address] + [place] [address] AVELINO, STEFANO/ALEIDA Unavailable . + ., [place] . UE Unavailable Unavailable Unavailable LOREE MAZARIEGOS Unavailable [address] + [place] [address] AVELINO, STEFANO/ALEIDA Unavailable Unavailable + UE Unavailable Unavailable Unavailable LOREE MAZARIEGOS Unavailable [address] + [place] [address] AVELINO, STEFANO/ALEIDA Unavailable Unavailable + UE Unavailable Unavailable Unavailable LOREE MAZARIEGOS Unavailable [address] + [place] [address] AVELINO, STEFANO/ALEIDA Unavailable Unavailable + UE Unavailable Unavailable Unavailable LOREE MAZARIEGOS Unavailable [address] + [place] [address] AVELINO, STEFANO/ALEIDA Unavailable Unavailable + UE Unavailable Unavailable Unavailable LOREE MAZARIEGOS Unavailable [address] + [place] [address] AVELINO, STEFANO/ALEIDA Unavailable [address] + [place] [address] UE Unavailable Unavailable Unavailable LOREE MAZARIEGOS Unavailable [address] + [place] [address] AVELINO, STEFANO/ALEIDA Unavailable Unavailable + [place] [address] UE Unavailable Unavailable Unavailable LOREE MAZARIEGOS Unavailable [address] + [place] [address] AVELINO, STEFANO/ALEIDA Unavailable [address] + [place] [address] UE Unavailable Unavailable Unavailable LOREE MAZARIEGOS Unavailable [address] + [place] [address] AVELINO, STEFANO/ALEIDA Unavailable [address] + [place] [address] UE Unavailable Unavailable Unavailable LOREE MAZARIEGOS Unavailable [address] + [place] [address] AVELINO, STEFANO/ALEIDA Unavailable [address] + [place] [address] UE Unavailable Unavailable Unavailable LOREE MAZARIEGOS Unavailable [address] + [place] [address] AVELINO, STEFANO/ALEIDA Unavailable [address] + [place] [address] UE Unavailable Unavailable Unavailable LOREE MAZARIEGOS Unavailable [address] + [place] [address] STEFANO YOU/ALEIDA Unavailable [address] + [place] [address] UE Unavailable Unavailable Unavailable Care Team Providers Name Role Phone Kayla Ness Attending Unavailable Bolivar, Kayla Attending Unavailable Antony Douglass BPM SOLUTION ARCHITECT-C Primary Care Unavailable Marcanthony, Alma Attending Unavailable TONY, DOUGLAS Referring Unavailable Marcanthony, Alma Attending Unavailable TONY, DOUGLAS Referring Unavailable TONY, DOUGLAS Primary Care Unavailable Marcanthony, Alma Attending Unavailable Marcanthony, Alma Attending Unavailable Marcanthony, Alma Referring Unavailable Antony Douglass BPM SOLUTION ARCHITECT-C Primary Care Unavailable Marcanthony, Alma Attending Unavailable TONY, DOUGLAS Referring Unavailable TONY, DOUGLAS Primary Care Unavailable Marcanthony, Alma Attending Unavailable Marcanthony, Alma Referring Unavailable TONY, DOUGLAS Primary Care Unavailable Marcanthony, Alma Attending Unavailable TONY, DOUGLAS Referring Unavailable Marcanthony, Alma Attending Unavailable Marcanthony, Alma Referring Unavailable Antony Douglass BPM SOLUTION ARCHITECT-C Primary Care Unavailable Marcanthony, Alma Attending Unavailable TONY, DOUGLAS Referring Unavailable Marcanthony, Alma Attending Unavailable Marcanthony, Alma Referring Unavailable Primay Care Physicia, No Primary Care Unavailable Marcanthony, Alma Attending Unavailable Marcanthony, Alma Referring Unavailable Primay Care Physicia, No Primary Care Unavailable Antony Douglass BPM SOLUTION ARCHITECT-C Primary Care Unavailable Marcanthony, Alma Attending Unavailable Marcanthony, Alma Referring Unavailable Bolivar, Kayla Consulting Unavailable Marcanthony, Alma Attending Unavailable Marcanthony, Alma Referring Unavailable Antony Douglass BPM SOLUTION ARCHITECT-C Primary Care Unavailable Grover, Kayla Consulting Unavailable Marcanthony, Alma Consulting Unavailable Bolivar, Kayla Attending Unavailable TONY, DOUGLAS Referring Unavailable Grover, Kayla Attending Unavailable Antony Douglass BPM SOLUTION ARCHITECT-C Primary Care Unavailable Bolivar, Kayla Referring Unavailable PROBLEMS PROBLEMS DATE TYPE CONDITION / CODE ATTENDING STATUS SOURCE 07/29/2018 Unknown Z34.90 - Encounter Marcanthony, Active [place] for supervision of [facility] normal , Hospital unspecified, Repository unspecified trimester / Z34.90(ICD-10) 07/29/2018 Unknown Z34.81 - Encounter Marcanthony, Active [place] for supervision of [facility] other normal Hospital , first Repository trimester / Z34.81(ICD-10) 07/29/2018 Unknown O09.899 - Marcanthony, Active [place] Supervision of [facility] other high risk Hospital pregnancies, Repository unspecified trimester / O09.899(ICD-10) 07/29/2018 Unknown Z67.91 - Marcanthony, Active [place] Unspecified blood [facility] type, Rh negative Hospital / Z67.91(ICD-10) Repository 07/29/2018 Unknown Z98.891 - History Marcanthony, Active [place] of uterine scar [facility] from previous Hospital surgery / Repository Z98.891(ICD-10) 07/29/2018 Unknown O26.899 - Other Marcanthony, Active [place] specified [facility] related Hospital conditions, Repository unspecified trimester / O26.899(ICD-10) 07/29/2018 Unknown O21.9 - Vomiting Marcanthony, Active [place] of , [facility] unspecified / Hospital O21.9(ICD-10) Repository 07/29/2018 Unknown Z3A.29 - 29 weeks Marcanthony, Active [place] gestation of [facility] / Hospital Z3A.29(ICD-10) Repository 07/29/2018 Unknown O99.013 - Anemia Marcanthony, Active [place] complicating [facility] , third Hospital trimester / Repository O99.013(ICD-10) 07/15/2018 Unknown Z3A.27 - 27 weeks Bolivar, Kayla Active [place] gestation of Community / Hospital Z3A.27(ICD-10) Repository 07/15/2018 Unknown R00.2 - Bolivar, Kayla Active [place] Palpitations / Community R00.2(ICD-10) Hospital Repository 06/01/2018 Unknown N63.10 - Marcanthony, Active [place] Unspecified lump [facility] in the right Hospital breast, Repository unspecified quadrant / N63.10(ICD-10) 05/08/2018 Unknown Z3A.18 - 18 weeks Marcanthony, Active [place] gestation of [facility] / Hospital Z3A.18(ICD-10) Repository 05/08/2018 Unknown N63.0 - Ernestine, Active [place] Unspecified lump [facility] in unspecified Hospital breast / Repository N63.0(ICD-10) 05/26/2018 Unknown Z31.430 - Ernestine, Active [place] Encounter of [facility] female for testing Hospital for genetic Repository disease carrier status for procreative management / Z31.430(ICD-10) 05/06/2018 Unknown Z3A.10 - 10 weeks Marcanthbrigid, Active [place] gestation of [facility] / Hospital Z3A.10(ICD-10) Repository 05/06/2018 Unknown Z12.4 - Encounter Ernestine, Active [place] for screening for [facility] malignant neoplasm Hospital of cervix / Repository Z12.4(ICD-10) PROCEDURES PROCEDURES No Procedure Records FoundRESULTS RESULTS CT/NG WCH BY PCR Collected: 07/29/2018 Status: F Source: [place] 2:[address] [facility] REPOSITORY TYPE CODE TESTS RESULT OUT OF RANGE REFERENCE UNITS LAB L8200.2100 Negative Normal Chlam Negative Trac PCR LAB L8200.2200 Negative Normal NG by Negative PCR Performed By: #### L8200.2000 #### [facility] [address] [place], [address] INSURANCE INSTRUCTOR OFFICE VISIT Observed: 07/29/2018 Status: F Source: [place] REPORT 11:[address] [facility] REPOSITORY [facility] [address] [place] [address] OFFICE VISIT Date of Service: 07/29/18 MR#: [id number] Acct: [id number] Name: HIPOLITO MAZARIEGOS Ashwin Rep #: [id number] : 1995 Provider: Alma Sinha MD Age/Sex: 22/ Location: [facility] Status: Signed Intake Vital Signs07/29/18 Body Mass Index (BMI) 22.8 07/29/18 Height 5 ft 3 in 07/29/18 Weight: 141 lb 07/29/18 Body Mass Index (BMI) 25.0 07/29/18 Blood Pressure 90/50 L Intake Visit Reasons: 29 week ob/rhogam Chief Complaint: est ob Web Press Operator Required: No Is patient in pain?: No Allergies No Known Allergies Allergy (Verified 07/29/18 11:15) Medications docosahexanoic acid 200 mg capsule 1 mg PO DAILY 02/20/18 [History Confirmed 07/29/18] ondansetron HCl 4 mg tablet 4 mg PO BID-TID PRN #60 tab 06/03/18 [Rx Confirmed 07/29/18] Metoclopramide [Reglan] 10 mg PO 4X/DAY #90 tab 06/05/18 [Rx Confirmed 07/15/18] Last Menstral Period: 01/01/18 Zika: Zika virus [...] Yes additional social history: 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 DateName GA/Weeks Outcome Route Bth WeighInfant GeLabor LgtAnesthesiDel LocatProvider FOB t n h a n Delivery Date: 12/11/15 On 03/13/18 @ 13:19 Alma Sinha breech. HPI 29 week ob/rhogam : Details: HIPOLITO MAZARIEGOS is a 22 year old who presents for routine OB visit. OB Visit [place] Calculator Estimated Delivery Date 10/08/18 Based on LMP (certain) 01/01/18 Current WG 29w 6d Number 1 Expected Delivery Route/Plan - uptodate education given Specific Issue/Plans flu vaccine: declines tdap vaccine: declined rhogam: given at 28 weeks LARC form signed: declines labor support person: Loree pain management: epidural cut cord/dad catch: no : yes PP control planned: [] special requests: [] Initial Weight: 130 lb Date Weight BP Urine PrFHR FuHt Pres MoCTX DilationFetal StVisit NoProviderComments E ot v te GA G Effac lucose ed Visit Notes Visit Date: 07/29/18 no vb lof good fm no regular ctx Alma Sinha MD on 07/29/18 Visit Date: 07/15/18 No vb, lof. Had one episode of palpitations when laying down. Lasted about 3 min. Ideal dizzy but resolved quickly. Had EMT friend check BP and WNL [facility] [place] on 07/15/18 Visit Date: 06/11/18 No Vb, LOF. Doing well [facility] [place] on 06/11/18 Visit Date: 05/08/18 no vb [...] NEGATIVE 03/13/18 Antibody Screen NEGATIVE 03/13/18 Hct 32.1 % (37-47) L 07/15/18 Hgb 10.6 g/dl (12.0-15.0) L 07/15/18 Obstetrics Ultrasound 05/26/18 Rubella IgG Antibody 72.3 IU/mL 03/13/18 RPR NONREACTIVE (NONREACTIVE) 03/13/18 Hep Bs Antigen Negative (Negative) 03/13/18 Chlam trachomat DNA PCR Negative (Negative) 06/11/18 N.gonorrhoeae DNA (PCR) Negative (Negative) 06/11/18 Glucose 1 Hr 50 gm 100 mg/dL (70-140) 07/15/18 Miscellaneous Test 04/13/18 Details: HIV: Urine Culture: Sequential Screen: NIPT Screen: Office Meds RhoGAM Ultra-Filtered PLUS Performing Provider: Alma Sinha MD Administered by: Olga Stewart on 07/29/18 11:18 Dose Route Admin Location Lot Number Expiration Date NDC Loading Unit Operator Seating 1,500 unit IM [place] [id number] 01/03/20 9519-0808-45 [employer] Assessment AND Plan Problems 1. Rh negative state in antepartum period O26.899; Z67.91 rhogam given at 28 weeks 2. History of delivery Z98.891 planning , uptodate education given. scheduled cs at 41 weeks 3. Nausea/vomiting in O21.9 phenergan 4. 29 weeks gestation of Z3A.29 carrier screening declined. NIPT normal. desires NTD screening. 5. Encounter for supervision of other normal in first trimester Z34.81 PRR [place] 10/08/18. girl Lisandra Ortiz Loree 6. Anemia affecting in third trimester O99.013 Plan movement and labor precautions reviewed. ACOG trimester education reviewed and updated. see problem list details for updated plan management information and see below for orders placed at this visit. GA appropriate handout given. Orders Orders: Medications Discontinued: RhoGAM Ultra-Filtered PLUS (rho(D) immune 1,500 units IM ONCE 1 ea 0RF NS O09.899, Z67.91 globulin) Discontinued Reason: Office Medication has been Documented as given Coding Level of Care Code OB Routine Diagnoses Rh negative state in antepartum period O26.899; Z67.91 History of delivery Z98.891 Nausea/vomiting in O21.9 29 weeks gestation of Z3A.29 Weeks of gestation: 29 weeks Encounter for supervision of other normal in first trimester Z34.81 Normal : other normal Trimester: first trimester Anemia affecting in third trimester O99.013 Trimester: third trimester 07/29/18 1134 <Electronically signed by Alma Sinha MD> Date Alma Sinha MD Cosigner Signature: Date (if applicable) CC: GLUCOSE CHALLENGE GEST Collected: 07/15/2018 Status: F Source: [place] 1H 50G 10:[address] [facility] REPOSITORY Order Comment: Comments: Lab draw at 10:42am Comments: Lab draw at 10:42am TYPE CODE TESTS RESULT OUT OF RANGE REFERENCE UNITS LAB L501.0250 70-140 mg/dL Normal GLU GEST 100 50g 1H Performed By: #### L501.0250 #### [facility] [address] [place], [address] CBC W/DIFF, AUTOMATED Collected: 07/15/2018 Status: F Source: [place] 10:[address] [facility] REPOSITORY TYPE CODE TESTS RESULT OUT OF RANGE REFERENCE UNITS LAB L100.1000 4.4-11.0 K/mm3 Normal WBC 9.0 LAB L100.1200 4.2-5.4 M/mm3 Low RBC 3.50 LAB L100.1300 12.0-15.0 g/dl Low HGB 10.6 LAB L100.1400 37-47 % Low HCT 32.1 LAB L100.1500 81-99 fL Normal MCV 91.7 LAB L100.1600 27.0-32.0 pg Normal MCH 30.3 LAB L100.1700 32-36 g/gl Normal MCHC 33.0 LAB L100.1810 11.6-14.6 % Normal RDW CV 13.8 LAB L100.1820 35.1-43.9 fl High RDW SD 45.5 LAB L100.1900 150-450 K/mm3 Normal PLT 219 LAB L100.2000 6.2-12.0 fl Normal MPV 9.0 LAB L100.2100 47-70 % High NEUT% 81.6 LAB L100.2200 19-41 % Low LY% 13.6 LAB L100.2300 0-10 % Normal MONO% 4.2 LAB L100.2400 0-5 % Normal EO% 0.4 LAB L100.2500 0-1 % Normal BASO% 0.1 LAB L100.2550 0.0-0.9 % Normal IM GRAN % 0.100 Result Comment: IG% - Immature Granulocytes (promyelocytes, myelocytes and metamyelocytes) > 1% indicates that a LEFT SHIFT is Present. LAB L100.2620 2.0-7.7 X10 3/uL Normal Absolute Neut 7.3 LAB L100.2720 0.83-4.51 X10 3/ul Normal Absolute Lymph 1.22 Performed By: #### L100.0100 #### [facility] [address] [place], [address] INSURANCE INSTRUCTOR OFFICE VISIT Observed: 07/15/2018 Status: F Source: [place] REPORT 9:[address] [facility] REPOSITORY [facility] [address] [place] [address] OFFICE VISIT Date of Service: 07/15/18 MR#: [id number] Acct: [id number] Name: HIPOLITO MAZARIEGOS Rep #: [id number] : 1995 Provider: MARYAN Ness Age/Sex: 22/F Location: [facility] Status: Signed Intake Vital Signs07/15/18 Height 5 ft 3 in 07/15/18 Weight: 140 lb 2 oz 07/15/18 Body Mass Index (BMI) 24.8 07/15/18 Blood Pressure 100/66 Intake Visit Reasons: 27 WK OB Web Press Operator Required: No Is patient in pain?: No Allergies No Known Allergies Allergy (Verified 07/15/18 09:31) Medications docosahexanoic acid 200 mg capsule 1 mg PO DAILY 02/20/18 [History Confirmed 07/15/18] ondansetron HCl 4 mg tablet 4 mg PO BID-TID PRN #60 tab 06/03/18 [Rx Confirmed 07/15/18] Metoclopramide [Reglan] 10 mg PO 4X/DAY #90 tab 06/05/18 [Rx Confirmed 07/15/18] Last Menstral Period: 01/01/18 Zika: Zika virus [...] Yes additional social history: 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 DateName GA/Weeks Outcome Route Bth WeighInfant GeLabor LgtAnesthesiDel LocatProvider FOB t n h a n Delivery Date: 12/11/15 On 03/13/18 @ 13:19 Alma Sinha breech. HPI 27 WK OB: Details: HIPOLITO MAZARIEGOS is a 22 year old who presents for routine OB visit. OB Visit [place] Calculator Estimated Delivery Date 10/08/18 Based on LMP (certain) 01/01/18 Current WG 27w 6d Number 1 Expected Delivery Route/Plan - uptodate education given Specific Issue/Plans flu vaccine: declines tdap vaccine: [] rhogam: [] LARC form signed: linda labor support person: Loree pain management: epidural cut cord/dad catch: no : yes PP control planned: [] special requests: [] Initial Weight: Not Recorded Date Weight BP Urine PrFHR FuHt Pres MoCTX DilationFetal StVisit NoProviderComments E ot v te [place] G Effac lucose ed Visit Notes Visit Date: 07/15/18 No vb, lof. Had one episode of palpitations when laying down. Lasted about 3 min. Ideal dizzy but resolved quickly. Had EMT friend check BP and WNL [facility] [place] on 07/15/18 Visit Date: 06/11/18 No Vb, LOF. Doing well [facility] [place] on 06/11/18 Visit Date: 05/08/18 no vb [...] 03/13/18 Chlam trachomat DNA PCR Negative (Negative) 06/11/18 N.gonorrhoeae DNA (PCR) Negative (Negative) 06/11/18 Miscellaneous Test 04/13/18 Details: HIV: Urine Culture: Sequential Screen: NIPT Screen: Results [id number] Office Urine Glucose Negative Last Edit by Chery Miguel on 07/15/18 09:46 Office Urine Protein Negative Last Edit by Chery Miguel on 07/15/18 09:46 Assessment AND Plan Problems 1. Encounter for supervision of other normal in first trimester Z34.81 PRR (urine gc/c) [place] 10/08/18. Was going to look up sex of baby online with . PRASHANT Ortiz Loree 2. 27 weeks gestation of Z3A.27 carrier screening declined. NIPT normal. desires NTD screening. 3. Rh negative state in antepartum period O09.899; Z67.91 rhogam at 28 weeks and at delivery, PRN 4. History of section Z98.891 planning in future 5. Palpitations R00.2 Plan Orders placed: 28 wk labs Considering tdap next visit Single short episode of palpitations 2 weeks ago and no recurrence. Will notify me if recurs and then plan cardiology referral. Reviewed of labor precautions, movement/kick counts ACOG trimester education reviewed and updated See problem list details for updated plan of care Gestational age appropriate handout given RTO: 2 week OB and rhogam Orders Orders: Coding Level of Care Code OB Routine Diagnoses Encounter for supervision of other normal in first trimester Z34.81 Normal : other normal Trimester: first trimester 27 weeks gestation of Z3A.27 Weeks of gestation: 27 weeks Rh negative state in antepartum period O09.899; Z67.91 History of section Z98.891 Palpitations R00.2 07/15/18 0959 <Electronically signed by Kayla CARTER> Date Kayla CARTER Cosigner Signature: Date (if applicable) CC: CT/NG WCH BY PCR Collected: 06/11/2018 Status: F Source: [place] 8:[address] [facility] REPOSITORY TYPE CODE TESTS RESULT OUT OF RANGE REFERENCE UNITS LAB L8200.2100 Negative Normal Chlam Negative Trac PCR LAB L8200.2200 Negative Normal NG by Negative PCR Performed By: #### L8200.2000 #### [facility] [address] [place], [address] INSURANCE INSTRUCTOR OFFICE VISIT Observed: 06/11/2018 Status: F Source: [place] REPORT 11:[address] [facility] REPOSITORY [facility] [address] [place] [address] OFFICE VISIT Date of Service: 06/11/18 MR#: [id number] Acct: [id number] Name: HIPOLITO MAZARIEGOS Rep #: [id number] : 1995 Provider: MARYAN Ness Age/Sex: 22/F Location: [facility] Status: Signed Intake Vital Signs06/11/18 Body Mass Index (BMI) 22.8 06/11/18 Height 5 ft 3 in 06/11/18 Weight: 135 lb 6 oz 06/11/18 Body Mass Index (BMI) 24.0 06/11/18 Blood Pressure 102/68 Intake Visit Reasons: 22 weeks Web Press Operator Required: No Is patient in pain?: No [...] Yes additional social history: [place]oree- Self Employed [employer] Pregancy History 2 Elective abortions Hx [...] Ef Gluco faced se 04/13/1126 lb 90/54 Qcoiebs937 no vb c 8 2 oz e [...] F Source: [place] NO DIFF 4:[address] [facility] REPOSITORY TYPE CODE TESTS RESULT OUT OF [...] 9.3 Performed By: #### L100.0500, L500.4050 #### [facility] [address] [place], [address] COMPREHENSIVE METABOLIC Collected: 06/03/2018 Status: F Source: [facility] 4:[address] [facility] REPOSITORY TYPE CODE TESTS RESULT OUT OF [...] 9 Performed By: #### L100.0500, L500.4050 #### [facility] [address] [place], [place], [address] URINALYSIS, ROUTINE Collected: 06/03/2018 Status: F Source: [place] (DIPSTICK) 4:[address] [facility] REPOSITORY Order Comment: How was Urine Obtained? PRESS FEEDER BROOMCORN TO SPECIFY TYPE CODE TESTS RESULT OUT [...] ESTERASE Negative Performed By: #### L400.2010 #### [facility] [address] [place], [address] BREAST LIMITED Observed: 05/26/2018 Status: F Source: [place] UNILATERAL 9:50 AM [facility] Imaging Services [address] [place] [address] Breast Limited Unilateral MR#: [id number] Acct: [id number] Name: HIPOLITO MAZARIEGOS Rep #: [id number] : 1995 F 22 From: Nas Ferrell MD PCP: Care Physician, No Primary Status: REG CLI Study: Breast Limited Unilateral Date of Exam: 05/26/18 Exam# [id number] Ordering Dr: Alma Sinha MD STUDY: ULTRASOUND [...] Nas Ferrell MD at 13:12 EST Tel [phone], Service support , CC: No Primary Care Physician; Alma Sinha MD Associate Director Of Development: Signed OB ANATOMY SCAN Observed: 05/26/2018 Status: F Source: [place] 9:[address] [facility] REPOSITORY [facility] Imaging [place] [address] OB Anatomy Scan MR#: [id number] Acct: [id number] Name: HIPOLITO MAZARIEGOS Rep #: [id number] : 1995 F 22 From: Nas Ferrell MD PCP: Care Physician, No Primary Status: REG CLI Study: OB Anatomy Scan Date of Exam: 05/26/18 Exam# [id number] Ordering Dr: Alma Sinha MD STUDY: SECOND [...] Nas Ferrell MD at 11:19 EST Tel [phone], Service support , CC: No Primary Care Physician; Alma Sinha MD Associate Director Of Development: Signed INSURANCE INSTRUCTOR OFFICE VISIT Observed: 05/08/2018 Status: F Source: [place] REPORT 11:[address] [facility]'s [address] [place] [address] OFFICE VISIT Date of Service: 05/08/18 MR#: [id number] Acct: [id number] Name: HIPOLITO MAZARIEGOS Ashwin Rep #: [id number] : 1995 Provider: Alma Sinha MD Age/Sex: 22/F Location: [facility] Status: Signed Intake Vital Signs05/08/18 Height 5 ft 3 in 05/08/18 Weight: 131 lb 6 oz 05/08/18 Body Mass Index (BMI) 23.3 05/08/18 Blood Pressure 118/58 L Intake Visit Reasons: 18 weeks Web Press Operator Required: No Is patient in pain?: No [...] Yes additional social history: Loree- Self Employed [employer] Pregancy History 2 Elective abortions Hx [...] MISCELLANEOUS LAB Collected: 04/13/2018 Status: F Source: [place] PROCEDURE 1:[address] [facility] REPOSITORY Order Comment: Comments: SEND OUT PANORAMA Test(s) Ordered: SEND OUT [place] TYPE CODE TESTS RESULT OUT OF RANGE REFERENCE UNITS LAB L801.1541 Normal [facility] LAB TEST Result Comment: Sent directly to testing facility per ordering physician. @ 05/26/18 1410 MYOUNG Performed By: #### L801.1541 #### [facility] [address] [place], [address] INSURANCE INSTRUCTOR OFFICE VISIT Observed: 04/13/2018 Status: F Source: [place] REPORT 1:[address] [facility] REPOSITORY [facility] 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 REPOSITORY TYPE CODE TESTS RESULT OUT OF [...] Lymph 1.61 Performed By: #### L100.0100 #### [facility] [address] [place] [address] TYPE AND SCREEN Collected: 03/13/2018 Status: F Source: [place] 1:[address] [facility] REPOSITORY Order Comment: Reason for Type AND Screen/Red Cells: TYPE CODE TESTS RESULT OUT OF RANGE REFERENCE UNITS LAB B10.0800 AB Normal BLOOD TYPE GEL NEGATIVE LAB B100.4000 Normal Antibody NEGATIVE Screen Performed By: #### B101.7450 #### [place] [id number] #### L3100.0390 #### [facility] (refer to report for specific site) refer to report for address and phone number HEPATITIS B SURFACE Collected: 03/13/2018 Status: F Source: [place] AG 1:[address] [facility] REPOSITORY TYPE CODE TESTS RESULT OUT OF RANGE REFERENCE UNITS LAB L3100.0400 Negative Normal HB Negative SURF AG Result Comment: Performed at: [facility] [address] [id number] Director Of Therapy Services: Desmond Vance PhD, Phone: [phone] Performed By: #### B101.7450 #### [place] [id number] #### L3100.0390 #### [facility] (refer to report for specific site) refer to report for address and phone number RUBELLA IGG Collected: 03/13/2018 Status: F Source: [place] 1:[address] [facility] REPOSITORY TYPE CODE TESTS RESULT OUT OF RANGE REFERENCE UNITS LAB L509.4000 IU/mL Normal Rubella IgG 72.3 Result Comment: Antibody results Interpretation of Immune Status < 5 IU/ml Presumed Non-immune 5 - < 10 IU/ml Equivocal > or = 10 IU/ml Presumed Immune Performed By: #### L509.4000, L3890.6005 #### [facility] [address] [place], [place] [id number] HIV - [facility] Collected: 03/13/2018 Status: F Source: [place] 1:[address] [facility] REPOSITORY TYPE CODE TESTS RESULT OUT OF RANGE REFERENCE UNITS LAB L3890.6005 Nonreactive Normal HIV - [facility] Non-Reactive Performed By: #### L509.4000, L3890.6005 #### [facility] [address] [place], [address] RAPID PLASMIN REAGIN Collected: 03/13/2018 Status: F Source: [place] (RPR) 1:[address] [facility] REPOSITORY TYPE CODE TESTS RESULT OUT OF REFERENCE UNITS RANGE LAB L700.5000 NONREACTIVE NONREACTIVE Normal RPR Performed By: #### L700.5000 #### [facility] [address] [place], [address] INSURANCE INSTRUCTOR OFFICE VISIT Observed: 03/13/2018 Status: F Source: [place] REPORT 1:[address] [facility] REPOSITORY [facility] 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 REPOSITORY TYPE CODE TESTS RESULT OUT OF RANGE REFERENCE UNITS LAB L8200.2100 Negative Normal Chlam Negative Trac PCR LAB L8200.2200 Negative Normal NG by Negative PCR Performed By: #### L8200.2000 #### [facility] [address] [place], [address] Observed: 03/13/2018 Status: F Source: [place] CULTURE, URINE 1:[address] [facility] REPOSITORY Urine Culture ORGANISM 1: Mixed Gram Positive Organisms [place] Count 1000-10,000 MIX CULTURE Mixed contaminants. Submit a new specimen if indicated. Performed By: #### M100.0650 #### [facility] [address] [place], [address] PAP TEST I-G Collected: 03/13/2018 Status: F Source: [place] 1:[address] [facility] REPOSITORY Order Comment: CYTOLOGY INFORMATION: - CLINICAL INFORMATION: - DATE LMP/MENOPAUSE: - COLLECTION VIAL: Thin Prep Vial - OUTSIDE SALES ACCOUNT EXECUTIVE SOURCE: CERVICAL - COLLECTION TECHNIQUE: CX BROOM ONLY Specimen Comment: [id number] Specimen Comment: Source.............Cervix Specimen Comment: No. of containers..01 ThinPrep Vial TYPE CODE TESTS RESULT OUT OF RANGE REFERENCE UNITS LAB L7400.0800 . Normal DIAGN Comment Result Comment: NEGATIVE FOR INTRAEPITHELIAL LESION AND MALIGNANCY. LAB L7400.0900 . Normal ADEQ Comment Result Comment: Satisfactory for evaluation. Endocervical and/or squamous metaplastic cells (endocervical component) are present. LAB L7400.1400 . Normal PERFORM Comment Result Comment: Janis Golden, Oenologist (ASCP) LAB L7400.2575 . Normal TEST METHOD Comment Result Comment: This liquid based ThinPrep(R) pap test was screened with the use of an image guided system. Performed at: - [facility] [place] [id number] Director Of Therapy Services: Marlin Luis MD, Phone: [phone] LAB H9190.0931 . Normal . COMM LAB L5982.0880 . Normal PAPSMR Comment Result Comment: The [...] to report for address and phone number INSURANCE INSTRUCTOR OFFICE VISIT Observed: 02/23/2018 Status: F Source: [place] REPORT 7:[address] [facility]'s [address] [place] [address] OFFICE VISIT Date of Service: 02/20/18 MR#: [id number] Acct: [id number] Name: HIPOLITO MAZARIEGOS Rep #: [id number] : 1995 Provider: Alma Sinha MD Age/Sex: 22/F Location: [facility] Status: Signed Intake Vital Signs02/20/18 Height 5 ft 4 in 02/20/18 Weight: 120 lb 8 oz 02/20/18 Body Mass Index (BMI) 20.7 02/20/18 Blood Pressure 107/68 Intake Visit Reasons: CRAMPING - WANTS US Web Press Operator Required: No Allergies No Known Allergies Allergy [...] Yes additional social history: Loree- Self Employed [employer] HPI CRAMPING - WANTS US: Details: HIPOLITO MAZARIEGOS is a 22 year old who presents for abdominal cramping. viable IUP 6 weeks seenw ith FHT present Female Reproductive History Last Menstral [...] O21.9 02/23/18 0708 <Electronically signed by Alma Sinha MD> Date Alma Sinha MD Cosigner Signature: Date (if applicable) CC: ALLERGIES ALLERGIES DATE TYPE / CODE NAME / CODE REACTION SEVERITY SOURCE 07/29/2018 Drug No Known Unknown [facility] [facility] Allergy/4160 Allergies/F00 Hospital 90716(SNOMED 6223414(RXNOR Repository CT) M) ENCOUNTERS ENCOUNTERS ADMIT/DISCHARGE ACCOUNT ADMITTING ENCOUNTER LOCATION SOURCE NUMBER CLASS 07/29/2018 [id number] Ambulatory [place] 9 [facility] ing:LABSPEC Repository 07/29/2018/ [id number] Ambulatory BMSBuilding:B [place] 9 6 [facility] Repository 07/15/2018 [id number] [place] [facility] ing:PAVLAB Repository 07/15/2018/ [id number] Ambulatory BMSBuilding:B [place] 9 4 [facility] Repository 06/11/2018 [id number] [place] 1 [facility] ing:LABSPEC Repository 06/11/2018/ [id number] Ambulatory BMSBuilding:B [place] 8 3 [facility] Repository 06/05/2018 [id number] Ambulatory BMSBuilding:B [place] 2 [facility] Repository 06/03/2018/ [id number] Ambulatory [place] 8 8 [facility] ing:WPOUTRoom Repository : [id number] 05/26/2018 [id number] Ambulatory [place] 5 [facility] ing:OPUS Repository 05/26/2018 [id number] Ambulatory [place] 6 [facility] ing:OPUS Repository 05/08/2018/ [id number] Ambulatory BMSBuilding:B [place] 8 1 [facility] Repository 04/13/2018 [id number] Ambulatory [place] 8 [facility] ing:LAB Repository 04/13/2018/ [id number] Ambulatory BMSBuilding:B [place] 8 9 [facility] Repository 03/13/2018 [id number] Ambulatory [place] 2 [facility] ing:LAB Repository 03/13/2018/ [id number] Ambulatory BMSBuilding:B [place] 8 1 [facility] Repository 02/27/2018 [id number] Ambulatory [facility]Building:B [place] 8 [facility] Repository 02/20/2018/08/17 [id number] Ambulatory BMSBuilding:B [place] 8 7 [facility] Repository PAYERS PAYERS ENCOUNTER GUARANTOR PAYER SUBSCRIBER SOURCE 07/29/2018 HIPOLITO R Primary HIPOLITO R [place] [id number] Insurance:VOODOOMERA MAZARIEGOSDOB: General acute hospital [id number] Number: Repository [id number]: 330 [id number] [phone] () Date: [address] [address]KW: 07/29/2018 Secondary NOT GIVENUNK [place] Insurance:SELF PAY [facility] Number: Effective Repository Date:2018-07-29 07/29/2018 HIPOLITO R Primary HIPOLITO R [place] [id number] Insurance:VOODOO MILLERDOB: General acute hospital [id number]-Hepburn Medical CenterPolic Number: Repository [id number]: 330 [id number] [phone] () Date: [address] [address]AH: 07/29/2018 Secondary NOT GIVENUNK [place] Insurance:SELF PAY [facility] Number: Effective Repository Date:2018-07-29 07/15/2018 HIPOLITO R Primary HIPOLITO R [place] [id number] Insurance:VOODOO MILLERDOB: General acute hospital [id number] Number: Repository [id number]: 330 [id number] [phone] () Date: [address] [address]RH: 07/15/2018 Secondary NOT GIVENUNK [place] Insurance:SELF PAY [facility] Number: Effective Repository Date:2018-07-15 07/15/2018 HIPOLITO R Primary HIPOLITO R [place] [id number] Insurance:VOODOO MILLERDOB: General acute hospital [id number]: Repository [id number]: 330 [id number] (HP) Date: [address] [address]QC: 07/15/2018 Secondary NOT GIVENUNK [place] Insurance:SELF PAY [facility] Number: Effective Repository Date:2018-07-15 06/11/2018 HIPOLITO R Primary HIPOLITO R [place] [id number] Insurance:VOODOO MILLERDOB: Community ANTONIO RUST [id number], [place] GROUPPolicy Number: Repository [id number]: 330 [id number] [phone] (HP) Date: [address] [address]OL: 06/11/2018 Secondary NOT GIVENUNK [place] Insurance:SELF PAY [facility] Number: Effective Repository Date:2018-06-11 06/11/2018 HIPOLITO R Primary HIPOLITO R [place] [id number] Insurance:VOODOO MILLERDOB: Community ANTONIO RUST [id number], [place] GROUPPolicy Number: Repository [id number]: ([phone] [id number] [phone] (HP) Date: [address] [address]RO: 06/11/2018 Secondary NOT GIVENUNK [place] Insurance:SELF PAY [facility] Number: Effective Repository Date:2018-05-18 06/05/2018 HIPOLITO R Primary HIPOLITO R [place] [id number] Insurance:VOODOO MILLERDOB: Community ANTONIO RUST [id number], [place] GROUPPolicy Number: Repository [id number]: 330 [id number] (HP) Date: [address] [address]QS: 06/05/2018 Secondary NOT GIVENUNK [place] Insurance:SELF PAY [facility] Number: Effective Repository Date:2018-06-05 06/03/2018 HIPOLITO R Primary HIPOLITO R [place] [id number] Insurance:VOODOO MILLERDOB: Community ANTONIO RUST [id number], [place] GROUPPolicy Number: Repository [id number]: 330 [id number] [phone] (HP) Date: [address] [address]QK: 06/03/2018 Secondary NOT GIVENUNK [place] Insurance:SELF PAY [facility] Number: Effective Repository Date:2018-06-03 05/26/2018 HIPOLITO R Primary HIPOLITO R [place] [id number] Insurance:VOODOO MILLERDOB: Community [facility] [id number], [place] GROUPPolicy Number: Repository [id number]: 330 [id number] [phone] (HP) Date: [address] [address]NH: 05/26/2018 Secondary NOT GIVENUNK [place] Insurance:SELF PAY [facility] Number: Effective Repository Date:2018-05-08 05/26/2018 HIPOLITO R Primary HIPOLITO R [place] [id number] Insurance:VOODOO MILLERDOB: Community [facility] [id number], [place] GROUPPolicy Number: Repository [id number]: 330 [id number] [phone] (HP) Date: TW [address] [place] [address]OI: 05/26/2018 Secondary NOT GIVENUNK [place] Insurance:SELF PAY [facility] Number: Effective Repository Date:2018-05-18 05/08/2018 HIPOLITO R Primary NOT GIVENUNK [place] [id number] Insurance:SELF PAY [place] Number: Effective Repository [address]Awr: 330) Date:2018-05-088179 (HP) 04/13/2018 HIPOLITO R Primary HIPOLITO R [place] [id number] Insurance:VOODOO MILLERDOB: Community ANTONIO RUST [id number], [place] GROUPPolicy Number: Repository [id number]: 330 [id number] [phone] (HP) Date: [address] [address]NE: 04/13/2018 Secondary NOT GIVENUNK [place] Insurance:SELF PAY [facility] Number: Effective Repository Date:2018-04-13 04/13/2018 HIPOLITO Primary HIPOLITO [place] [id number] Insurance:VOODOO MILLERDOB: Community ANTONIO RUST [id number], [place] GROUPPolicy Number: Repository [id number]: [id number] 79 (HP) Date: [address] [address]WL: 04/13/2018 Secondary NOT GIVENUNK [place] Insurance:SELF PAY [facility] Number: Effective Repository Date:2018-04-13 03/13/2018 HIPOLITO R Primary HIPOLITO R [place] [id number] Insurance:VOODOO MILLERDOB: Community ANTONIO RUST [id number], [place] GROUPPolic Number: Repository [id number]: 330 Effective 79 (HP) Date: [address] [address]HF: 03/13/2018 Secondary NOT GIVENUNK [place] Insurance:SELF PAY [facility] Number: Effective Repository Date:2018-03-13 03/13/2018 HIPOLITO R Primary HIPOLITO R [place] [id number] Insurance:VOODOO MILLERDOB: Community [facility] [id number], [place] GROUPPolic Number: Repository [id number]: 330 Effective 79 (HP) Date: [address] [address]DA: 03/13/2018 Secondary NOT GIVENUNK [place] Insurance:SELF PAY [facility] Number: Effective Repository Date:2018-03-13 02/27/2018 HIPOLITO Primary NOT GIVENUNK [place] [id number] Insurance:SELF PAY [place] Number: Effective Repository [id number]: (330) Date:2018-02-030617 () 02/20/2018 HIPOLITO Primary NOT GIVENUNK [place] [id number] Insurance:SELF PAY [place] Number: Effective Repository [phone]: (330) Date:2018-02-209310 ()
== END ==
PROVIDERS: Family Provider Nurse Practitioner Family; PCP Nurse Practitioner Family; Referring Provider Obstetrics & Gynecology; Visit Provider Obstetrics & Gynecology
DX: Z34.90 Encounter for supervision of normal pregnancy, unspecified, unspecified trimester (principal)
CPT/HCPCS: 87491; 87591

== ENCOUNTER → 2018-09-21 15:54 | Outpatient (CLI) | payer OTHER, SELFPAY ==
[2018-09-21 13:39] VITALS: BMI 25.4
== END ==
PROVIDERS: Family Provider Nurse Practitioner Family; PCP Nurse Practitioner Family; Referring Provider Obstetrics & Gynecology; Visit Provider Obstetrics & Gynecology
DX: Z34.90 Encounter for supervision of normal pregnancy, unspecified, unspecified trimester (principal)
CPT/HCPCS: 87081

== ENCOUNTER 2018-10-03 07:30 | Inpatient (IN) | payer SELFPAY ==
[2018-09-28 12:10] VITALS: BMI 25.4
[2018-10-03] MEDS: Lactated Ringers 1,000 ML 50 ML IV ×2 (08:00→09:21)
[2018-10-03 08:06] VITALS: BMI 26.5
[2018-10-03 08:15] LABS: Absolute Lymphocyte Count 1.54 X10^3/ul (0.83-4.51); Absolute Neutrophil Count 8.7 X10^3/uL (2.0-7.7); Basophil# 0.01 X10^3/uL; Basophil% 0.1 % (0-1); Eosinophil# 0.04 X10^3/uL; Eosinophils% 0.4 % (0-5); Hemoglobin 9.9 g/dl (12.0-15.0); Lymphocyte # 1.54 X10^3/ul (4.0); Lymphocyte % 14.1 % (19-41); Mean Corp Hgb Conc 27.5 g/gl (32-36); Mean Corpuscular Volume 87.4 fL (81-99); Mean Platelet Vol. 10.1 fl (6.2-12.0); Monocyte% 5.5 % (0-10); Neutrophil # 8.68 X10^3/uL (2.7-7.7); Neutrophil % 79.4 % (47-70); POSITIVE COUNT NO; POSITIVE DIFFERENTIAL NO; POSITIVE MORPHOLOGY NO; Platelet Count 207 K/mm3 (150-450); RBC Distribution Width CV 14.8 % (11.6-14.6); RBC Distribution Width SD 46.1 fl (35.1-43.9); Red Blood Count 4.12 M/mm3 (4.2-5.4); White Blood Count 10.9 K/mm3 (4.4-11.0)
--- NOTE | 2018-10-03 08:48 | PCM.HP.OB ---
- Problem List (1) Active labor at term Status: Acute (2) Anemia affecting Status: Acute Qualifiers: Comment: iron check at 36 weeks (3) Rh negative state in antepartum period Status: Acute Comment: rhogam given at 28 weeks (4) Supervision of normal Status: Acute Qualifiers: Comment: PRR [place] 10/08/18. girl Lisandra Ortiz Zackery (5) Status: Acute Qualifiers: Comment: carrier and ntd screening declined. NIPT normal. anatomy scan reviewed (6) History of section Status: Chronic Comment: planning , uptodate education given. scheduled cs at 41 weeks History Date of Admission: 10/03/18 Final [place]: 10/08/18 Gestational age: 39 Weeks and 2 Days History of this : This is a 23 year-old, , at 39w2d weeks gestational age presents IAL 5 cm dilated. she has had a previous cs for breech and is wanting a . she denies significant bleeding and admits good fm. she has had an uncomplicated Surgical History: Surgical History (Last Reviewed 09/28/18 @ 10:53 by Jennifer Doss) delivery delivered O82 Allergies No Known Allergies Allergy (Verified 10/03/18 08:12) Home Medications: Home Medications docosahexanoic acid 200 mg capsule 1 mg PO DAILY 02/20/18 Smoking Status: Smoker, status unknown Alcohol: None Number of Fetus(es): 1 Heart Tracin moderate variability reactive no decelerations category I tracing [place]: regular History Past Pregnancies: Past Pregnancies previous term cs for breech- [facility] Labs: Mom's Labs & Results 10/03/18 10/03/18 07:45 07:45 WBC 10.9 RBC 4.12 L Hgb 9.9 L Hct 36.0 L MCV 87.4 MCH 24.0 L MCHC 27.5 L RDW 14.8 H RDW Differential 46.1 H Plt Count 207 MPV 10.1 Immature Gran % (Auto) 0.500 Neut % (Auto) 79.4 H Lymph % (Auto) 14.1 L [place] % (Auto) 5.5 Eos % (Auto) 0.4 Baso % (Auto) 0.1 Absolute Neuts (auto) 8.7 H Absolute Lymphs (auto) 1.54 Total Counted Not Reportable Blood Type Pending Antibody Screen Pending Social History Alleged father Zackery Freedman Smoking No Smoking Status Smoker, status unknown Expected Delivery Method: Review of Systems Constitutional: Denies: Fever, Malaise Eyes: Denies: Blurred vision, Vision Change HEENT: Denies: Head Aches, Visual Changes Cardiovascular: Denies: Chest Pain, Palpitations Respiratory: Denies: Cough, Shortness of Breath, Wheezing Gastrointestinal: Denies: Abdominal Pain, Diarrhea, Nausea, Vomiting Genitourinary: Denies: Dysuria, Hematuria Musculoskeletal: Denies: Joint Pain, Muscle pain Skin: Denies: Lesions, Rash Neurological: Denies: Blurred vision, Focal weakness, Headaches Psychiatric: Denies: Anxiety, Depression Endocrine: Denies: Heat/ Cold Intolerance Hematologic/ Lymphatic: Denies: Easy Bruising, Easy Bleeding Physical Exam General: Alert, Cooperative, No apparent distress HEENT: Atraumatic, Normocephalic. Negative for: Thyromegaly, Lymphadenopathy Cardiovascular: Regular rate Lungs: Normal air movement Abdomen: Soft, Non Tender, Gravid Neurological: Deep Tendon Reflexes 2+/4 and Symmetrical, Neuro grossly intact. 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 Negative for: Vulvar lesions Estimated gestational size: Appropriate for gestational size Presentation: Cephalic Assessment/Plan All Active Problems (Last Reviewed 09/28/18 @ 10:53 by Jennifer Doss) Active labor at term (Acute) Anemia affecting (Acute) Rh negative state in antepartum period (Acute) Supervision of normal (Acute) (Acute) Nausea and vomiting during (Resolved) This is a 23 year-old, at 39w2d weeks gestational age presents IAL for Patient presents IAL, plan expectant management for , srom clear fluid. Pain management: plans epidural. GBS negative. Management of any complications: none I have reviewed the [facility] and made any clinically relevant updates.
[2018-10-03] MEDS: fentaNYL-bupivacaine (epidural) 100 ML BAG EPIDURAL (08:50)
--- NOTE | 2018-10-03 08:51 | HP.PCM_ITS ---
- Problem List (1) Active labor at term Status: Acute (2) Anemia affecting Status: Acute Qualifiers: Comment: iron check at 36 weeks (3) Rh negative state in antepartum period Status: Acute Comment: rhogam given at 28 weeks (4) Supervision of normal Status: Acute Qualifiers: Comment: PRR [place] 10/08/18. girl Lisandra Ortiz Zackery (5) Status: Acute Qualifiers: Comment: carrier and ntd screening declined. NIPT normal. anatomy scan reviewed (6) History of section Status: Chronic Comment: planning , uptodate education given. scheduled cs at 41 weeks History Date of Admission: 10/03/18 Final [place]: 10/08/18 Gestational age: 39 Weeks and 2 Days History of this : This is a 23 year-old, , at 39w2d weeks gestational age presents IAL 5 cm dilated. she has had a previous cs for breech and is wanting a . she denies significant bleeding and admits good fm. she has had an uncomplicated Surgical History: Surgical History (Last Reviewed 09/28/18 @ 10:53 by Jennifer Doss) delivery delivered O82 Allergies No Known Allergies Allergy (Verified 10/03/18 08:12) Home Medications: Home Medications docosahexanoic acid 200 mg capsule 1 mg PO DAILY 02/20/18 Smoking Status: Smoker, status unknown Alcohol: None Number of Fetus(es): 1 Heart Tracin moderate variability reactive no decelerations category I tracing [place]: regular History Past Pregnancies: Past Pregnancies previous term cs for breech- [facility] Labs: Mom's Labs & Results 10/03/18 10/03/18 07:45 07:45 WBC 10.9 RBC 4.12 L Hgb 9.9 L Hct 36.0 L MCV 87.4 MCH 24.0 L MCHC 27.5 L RDW 14.8 H RDW Differential 46.1 H Plt Count 207 MPV 10.1 Immature Gran % (Auto) 0.500 Neut % (Auto) 79.4 H Lymph % (Auto) 14.1 L [place] % (Auto) 5.5 Eos % (Auto) 0.4 Baso % (Auto) 0.1 Absolute Neuts (auto) 8.7 H Absolute Lymphs (auto) 1.54 Total Counted Not Reportable Blood Type Pending Antibody Screen Pending Social History Alleged father Zackery Freedman Smoking No Smoking Status Smoker, status unknown Expected Delivery Method: Review of Systems Constitutional: Denies: Fever, Malaise Eyes: Denies: Blurred vision, Vision Change HEENT: Denies: Head Aches, Visual Changes Cardiovascular: Denies: Chest Pain, Palpitations Respiratory: Denies: Cough, Shortness of Breath, Wheezing Gastrointestinal: Denies: Abdominal Pain, Diarrhea, Nausea, Vomiting Genitourinary: Denies: Dysuria, Hematuria Musculoskeletal: Denies: Joint Pain, Muscle pain Skin: Denies: Lesions, Rash Neurological: Denies: Blurred vision, Focal weakness, Headaches Psychiatric: Denies: Anxiety, Depression Endocrine: Denies: Heat/ Cold Intolerance Hematologic/ Lymphatic: Denies: Easy Bruising, Easy Bleeding Physical Exam General: Alert, Cooperative, No apparent distress HEENT: Atraumatic, Normocephalic. Negative for: Thyromegaly, Lymphadenopathy Cardiovascular: Regular rate Lungs: Normal air movement Abdomen: Soft, Non Tender, Gravid Neurological: Deep Tendon Reflexes 2+/4 and Symmetrical, Neuro grossly intact. 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 Negative for: Vulvar lesions Estimated gestational size: Appropriate for gestational size Presentation: Cephalic Assessment/Plan All Active Problems (Last Reviewed 09/28/18 @ 10:53 by Jennifer Doss) Active labor at term (Acute) Anemia affecting (Acute) Rh negative state in antepartum period (Acute) Supervision of normal (Acute) (Acute) Nausea and vomiting during (Resolved) This is a 23 year-old, at 39w2d weeks gestational age presents IAL for Patient presents IAL, plan expectant management for , srom clear fluid. Pain management: plans epidural. GBS negative. Management of any complications: none I have reviewed the [facility] and made any clinically relevant updates.
--- NOTE | 2018-10-03 11:15 | PCM.PN.BLA ---
Progress Note LABOR PROGRESS NOTE Comfortable with epidural. She has started pushing. AVSS GEN - NAD, AAO x 3 Perineum bulging with scalp visible on pushing SVE deferred - last exam FD/0 per RN Janis Odonnell TOCO 4/10 min FHR Cat I-II A/P: 23yo @ 40 6/7wga, TOLAC -Maternal and statuses reassuring -Anticipate
[2018-10-03] MEDS: Oxytocin 30 units/NS 500 ml 30 UNITS/500 ML IV.SOLN 334 UNITS IV (11:20)
[2018-10-03] MEDS: Oxytocin 30 units/NS 500 ml 30 UNITS/500 ML IV.SOLN 167 UNITS IV (11:50)
--- NOTE | 2018-10-03 12:06 | PCM.OPRPT ---
Problem List (1) (vaginal after ) Status: Acute (2) 39 weeks gestation of Status: Acute Vaginal Delivery Maternal Presentation: Active Labor Amniotic Membrane Rupture Type: Spontaneous Rupture of Membrane time: 0838h Amniotic Fluid Description: Clear Final [place]: 10/08/18 Final [place] Source: US <20 weeks Gestational age: 39 Weeks and 2 Days Date of Procedure: 10/03/18 Pre-Operative Diagnosis: 39 2/7wga, hx prior LTCS Post-Operative Diagnosis: 39 2/7wga, hx prior LTCS Surgery/ Procedure Performed: Spontaneous Vaginal Delivery, - - Vaginal after section Anesthesiologist: Frank Ann Type of Anesthesia: Epidural Description of Procedure: Patient pushed to deliver a vigorous female infant in OA. The infant was placed on the maternal abdomen and further attended by nursery personnel. The cord was doubly clamped and cut at approximately 6 minutes of life. Cord blood was obtained. The placenta delivered spontaneously and appeared intact on inspection. Intrauterine exam performed. Fundus was firm. A second degree perineal laceration was repaired using 3-0 Vicryl Rapide with excellent hemostasis. Sponge and needle counts correct x 2. ......................................................................... Presentation: Vertex Placental Delivery Description: Spontaneous Cord Vessel Description: 3 Vessels Cord Entanglement: None Drain: Szymanski to straight drain Estimated Blood Loss: 350 ml A gender: Female (1 minute): 8 (5 minute): 9 Episiotomy Description: None Laceration: Midline, Perineal Extension/lac, 2nd degree Medications given after delivery: IV Pitocin Complications: None
[2018-10-03] MEDS: Ibuprofen 600 MG Tablet PO ×2 (14:57→21:02)
[2018-10-03 16:13] VITALS: BP 106/49; PULSE 78; RESP 16; TEMP 36.4; O2SAT 99
[2018-10-03] MEDS: Acetaminophen 500 MG Tablet 1000 MG PO (17:43)
[2018-10-03 20:35] VITALS: BP 100/52; PULSE 91; RESP 18; TEMP 37.2
[2018-10-03 23:18] VITALS: BP 100/46; PULSE 80; RESP 16; TEMP 36.8
[2018-10-04] MEDS: Ibuprofen 600 MG Tablet PO ×2 (04:20→10:38)
[2018-10-04] MEDS: Senna/Docusate Sodium 1 Tablet PO (04:21)
[2018-10-04 04:30] VITALS: BP 98/63; PULSE 75; RESP 18; TEMP 36.3
[2018-10-04 08:24] VITALS: BP 99/54; PULSE 85; RESP 16; TEMP 36.6; O2SAT 99
--- NOTE | 2018-10-04 09:20 | PCM.PN.OB ---
Patient Problems: Active and Suspected Problems (Last Reviewed 09/28/18 @ 10:53 by Jennifer Doss) Active labor at term (Acute) (vaginal after ) (Acute) 39 weeks gestation of (Acute) Subjective: doing well no complaints pain controlled no CP SOB N V ambulating well tolerating po lochia moderate, going well - Physical Exam General: Alert, Oriented x3 Abdomen: Soft, Non Tender, Non-Distended, - - FF below U. Vital Signs Temp Pulse Resp BP Pulse Ox 97.8 F 85 16 99/54 L 99 10/04/18 08:24 10/04/18 08:24 10/04/18 08:24 10/04/18 08:24 10/04/18 08:24 Oxygen Delivery Method Room Air Weight: 150 lb Body Mass Index (BMI) 26.5 Intake and Output for Last 24 Hours 10/02/18 10/03/18 10/04/18 23:59 23:59 23:59 Intake Total 1750 / 1750 Output Total 700 / 700 Balance 1050 / 1050 Laboratory Tests Past 24 Hrs 10/03/18 14:55 Screen NEGATIVE Baby's Blood Type A POSITIVE Baby's BERONICA NEGATIVE Medical Necessity - Tobacco Use Smoking Status: Never smoker Assessment/Plan All Active Problems (Last Reviewed 09/28/18 @ 10:53 by Jennifer Doss) Active labor at term (Acute) (vaginal after ) (Acute) 39 weeks gestation of (Acute) Anemia affecting (Acute) Rh negative state in antepartum period (Acute) Supervision of normal (Acute) (Acute) Nausea and vomiting during (Resolved) s/p PPD # 1 1. routine post delivery care 2. breast feeding- support given 3. rh negative 4. rubella immune 5. plans home today
--- NOTE | 2018-10-04 09:22 | PCM.DCVAG ---
Additional Instructions: If you experience any of the following, contact your healthcare provider. Bleeding that soaks a pad every hour for 2 hours Fever 100.4 or higher Unrelieved incision or abdominal pain Swelling, redness, discharge or bleeding from your incision or episiotomy site Your incision begins to separate Problems urinating (including inability to urinate or burning while urinating). Visual changes Severe headache Flu-like symptoms Pain or redness in one of both of your breasts Pain, warmth, tenderness or swelling in your legs, especially the calf area Frequent nausea and vomiting Symptoms of depression or anxiety If you experience any of the following, call 911 or go to the nearest Emergency Room. Chest pain Problems breathing Seizure activity Partial or complete paralysis of a body part, slurred speech, weakness or drooping of the face, or a sudden inability to walk or hold your balance Allergies/Adverse Reactions: Allergies No Known Allergies Allergy (Verified 10/03/18 08:12) Medications to take at Discharge docosahexanoic acid 200 mg capsule 1 mg PO DAILY 02/20/18 Primary Care Physician: Antony Douglass, MARYAN-C [Primary Care Provider] - Test Results: Test results from this visit will be discussed in further detail at your follow-up appointment, if applicable.
--- NOTE | 2018-10-04 09:23 | DCINST_ITS ---
Additional Instructions: If you experience any of the following, contact your healthcare provider. * Bleeding that soaks a pad every hour for 2 hours * Fever 100.4 or higher * Unrelieved incision or abdominal pain * Swelling, redness, discharge or bleeding from your incision or episiotomy site * Your incision begins to separate * Problems urinating (including inability to urinate or burning while urinating). * Visual changes * Severe headache * Flu-like symptoms * Pain or redness in one of both of your breasts * Pain, warmth, tenderness or swelling in your legs, especially the calf area * Frequent nausea and vomiting * Symptoms of depression or anxiety If you experience any of the following, call 911 or go to the nearest Emergency Room. * Chest pain * Problems breathing * Seizure activity * Partial or complete paralysis of a body part, slurred speech, weakness or drooping of the face, or a sudden inability to walk or hold your balance Allergies/Adverse Reactions: Allergies No Known Allergies Allergy (Verified 10/03/18 08:12) Medications to take at Discharge docosahexanoic acid 200 mg capsule 1 mg PO DAILY 02/20/18 Primary Care Physician: Antony Douglass, MARYAN-C [Primary Care Provider] - Test Results: Test results from this visit will be discussed in further detail at your follow- up appointment, if applicable.
[2018-10-04 14:19] VITALS: BP 94/70; PULSE 84; RESP 16; TEMP 36.7
== END 2018-10-04 14:30 | disposition home or self-care (01) | DRG 806 ==
LOC: WPOUT 07:34 → WP 07:35
PROVIDERS: Obstetrics & Gynecology; Admitting Provider Obstetrics & Gynecology; Family Provider Nurse Practitioner Family; PCP Nurse Practitioner Family; Referring Provider Obstetrics & Gynecology; Visit Provider Obstetrics & Gynecology
DX: O34.211 Maternal care for low transverse scar from previous cesarean delivery (principal); O36.0130 Maternal care for anti-D [Rh] antibodies, third trimester, not applicable or unspecified; Z37.0 Single live birth; O70.1 Second degree perineal laceration during delivery; O42.02 Full-term premature rupture of membranes, onset of labor within 24 hours of rupture; O99.02 Anemia complicating childbirth; D64.9 Anemia, unspecified; O99.334 Smoking (tobacco) complicating childbirth; Z3A.39 39 weeks gestation of pregnancy
CPT/HCPCS: 59025; 59050; 85025; 85461; 86850; 86900; 90384; 99218; J7120; G0378; J2790

== ENCOUNTER → 2019-11-23 14:18 | Outpatient (CLI) | payer SELFPAY ==
[2018-11-13 11:44] VITALS: BMI 26.5
[2019-11-23 14:59] LABS: hCG Titer Quant., Serum 3 mIU/mL (1-3)
== END ==
PROVIDERS: Nurse Practitioner Women's Health; PCP Nurse Practitioner Family; Referring Provider Obstetrics & Gynecology; Visit Provider Obstetrics & Gynecology
DX: O20.0 Threatened abortion (principal); Z3A.00 Weeks of gestation of pregnancy not specified
CPT/HCPCS: 36415; 84702

== ENCOUNTER → 2021-07-02 10:05 | Outpatient (CLI) | payer SELFPAY ==
[2021-07-02 10:41] LABS: Absolute Lymphocyte Count 1.67 X10^3/uL (0.83-4.51); Basophil# 0.03 X10^3/uL; Basophil% 0.3 % (0-1); Eosinophil# 0.07 X10^3/uL; Eosinophils% 0.8 % (0-5); Hematocrit 39.3 % (37-47); Hemoglobin 13.5 g/dL (12.0-15.0); Lymphocyte # 1.67 X10^3/ul (0.83-4.51); Mean Corp Hgb Conc 34.4 g/dL (32-36); Mean Corpuscular Hgb 30.4 pg (27.0-32.0); Mean Corpuscular Volume 88.5 fL (81-99); Mean Platelet Vol. 9.6 fl (6.2-12.0); Monocyte# 0.49 X10^3/uL; Monocyte% 5.3 % (0-10); NRBC Flagged by Analyzer 0 % (0-5); Neutrophil # 6.97 X10^3/uL (2.7-7.7); Neutrophil % 75.2 % (47-70); Platelet Count 274 K/mm3 (150-450); RBC Distribution Width CV 13.2 % (11.6-14.6); RBC Distribution Width SD 42.8 fl (35.1-43.9); Red Blood Count 4.44 M/mm3 (4.2-5.4); White Blood Count 9.3 K/mm3 (4.4-11.0)
[2021-07-02 11:03] LABS: Rubella IgG Reactive (Nonreactive)
[2021-07-04 09:48] LABS: HPV Reflexed? NOT INDICATED
== END ==
PROVIDERS: PCP Nurse Practitioner Family; Referring Provider Obstetrics & Gynecology; Visit Provider Obstetrics & Gynecology
DX: O34.219 Maternal care for unspecified type scar from previous cesarean delivery (principal); O26.899 Other specified pregnancy related conditions, unspecified trimester; Z67.91 Unspecified blood type, Rh negative; Z3A.00 Weeks of gestation of pregnancy not specified; Z12.4 Encounter for screening for malignant neoplasm of cervix
CPT/HCPCS: 36415; 85025; 86762; 86850; 86900; 86901; 87086; 87088; 88175; G0145

== ENCOUNTER 2021-09-13 12:26 | Outpatient (CLI) | payer SELFPAY ==
--- NOTE | 2021-09-13 12:28 | US_ITS ---
STUDY: SECOND AND THIRD TRIMESTER OBSTETRICAL ULTRASOUND REASON FOR EXAM: Female, 26 years old 20 week anatomy scan LMP: 04/28/2021 TECHNIQUE: Transabdominal TECHNICAL QUALITY: Adequate. PRIOR ULTRASOUND: None. FINDINGS: There is a single intrauterine fetus. The fetus is in a cephalic presentation. There is demonstrated cardiac activity with a heart rate of 152 bpm. There is a normal amniotic fluid volume. The largest amniotic fluid pocket measures 4.7 cm. The amniotic fluid index (JASON) is cm. The placenta is anterior in location and is not low lying. There are Grade 0 placental changes. The cervix measures 4.3 cm in length. The adnexal regions are not visualized. BIOMETRY: BPD: 4.7 cm: 20 weeks, 1 days HC: 17.7 cm: 20 weeks, 1 days AC: 14.7 cm: 19 weeks, 6 days FL: 3.0 cm: 19 weeks, 1 days CI: 76.15% FL/BPD: 63.46% FL/HC: 16.86% FL/AC: 20.29% HC/AC: 1.20 age by current US: 19 weeks, 6 days. [place] by current US: 02/01/2022. Estimated weight: 308 grams, +/- 46 grams, 44 %. Age by LMP: 19 weeks, 5 days. [place] by LMP: 02/02/2022. ANATOMY: Gender: Cranium: Normal lateral ventricles. Normal choroid plexus. Normal cerebellum. Normal cisterna magna. Normal face, nose and lips. Chest: Normal 4-chamber heart. Abdomen/Pelvis: Normal diaphragm. Normal stomach. Normal abdominal wall. Normal cord insertion. Normal 3 vessel cord. Normal kidneys. Normal bladder. Spine: Normal cervical spine. Normal thoracic spine. Normal lumbar spine. Normal sacrum. Extremities: Normal bilateral upper extremities. Normal bilateral lower extremities. US/OB Anatomy Scan IMPRESSION: Living uterine of 19 weeks 6 days as described above. Electronically Signed: Antony Ochoa MD at 17:37 EST ,
== END 2021-09-13 23:59 | disposition home or self-care (01) ==
LOC: OPUS 12:26
PROVIDERS: PCP Nurse Practitioner Family; Visit Provider Obstetrics & Gynecology
DX: Z34.92 Encounter for supervision of normal pregnancy, unspecified, second trimester (principal)
CPT/HCPCS: 76805; 76817

== ENCOUNTER 2021-09-28 07:49 | Outpatient (CLI) | payer SELFPAY, OTHER | END 2021-09-28 23:59 | disposition home or self-care (01) | LOC: LABSPEC 10-01 07:49 | PROVIDERS: PCP Nurse Practitioner Family; Visit Provider Obstetrics & Gynecology | DX: R39.15 Urgency of urination (principal) | CPT/HCPCS: 87086; 87088 ==

== ENCOUNTER → 2021-11-19 | Outpatient (CLI) | payer SELFPAY ==
[2021-11-19 10:24] LABS: Absolute Lymphocyte Count 1.47 X10^3/uL (0.83-4.51); Absolute Neutrophil Count 8.9 X10^3/uL (2.0-7.7); Basophil# 0.02 X10^3/uL; Basophil% 0.2 % (0-1); Eosinophil# 0.07 X10^3/uL; Eosinophils% 0.6 % (0-5); Hematocrit 36.2 % (37-47); Lymphocyte # 1.47 X10^3/ul (0.83-4.51); Lymphocyte % 13.2 % (19-41); Mean Corp Hgb Conc 33.1 g/dL (32-36); Mean Corpuscular Hgb 31.3 pg (27.0-32.0); Mean Corpuscular Volume 94.5 fL (81-99); Mean Platelet Vol. 9.8 fl (6.2-12.0); Monocyte# 0.59 X10^3/uL; Monocyte% 5.3 % (0-10); NRBC Flagged by Analyzer 0 % (0-5); Neutrophil # 8.91 X10^3/uL (2.7-7.7); Platelet Count 240 K/mm3 (150-450); RBC Distribution Width CV 13.3 % (11.6-14.6); RBC Distribution Width SD 46.3 fl (35.1-43.9); Red Blood Count 3.83 M/mm3 (4.2-5.4); White Blood Count 11.1 K/mm3 (4.4-11.0)
[2021-11-19 10:36] LABS: Glucose Challenge Gest 1H 50g 100 mg/dL (70-140)
== END | disposition home or self-care (01) ==
PROVIDERS: PCP Nurse Practitioner Family; Referring Provider Obstetrics & Gynecology; Visit Provider Obstetrics & Gynecology
DX: O26.899 Other specified pregnancy related conditions, unspecified trimester (principal); Z67.91 Unspecified blood type, Rh negative
CPT/HCPCS: 36415; 82950; 85025; 86850; 86900; 86901

== ENCOUNTER → 2022-01-04 | Outpatient (CLI) | payer SELFPAY ==
--- NOTE | 2022-01-04 15:54 | US_ITS ---
STUDY: SECOND AND THIRD TRIMESTER OBSTETRICAL ULTRASOUND - LIMITED REASON FOR EXAM: Female, 26 years old. growth PRIOR ULTRASOUND: Sep 13 2021 12:36pm . TECHNIQUE: Transabdominal TECHNICAL QUALITY: Adequate. FINDINGS: There is a single intrauterine fetus. The fetus is in a cephalic presentation. There is demonstrated cardiac activity with a heart rate of 134 bpm. There is a normal amniotic fluid volume. The largest amniotic fluid pocket measures 3 cm. The amniotic fluid index (JASON) is 11.4 cm. The placenta is anterior in location and is not low lying. There are Grade 1 placental changes. The cervix measures cm in length: 3.2. BIOMETRY: BPD: 88 mm: 35 weeks, 2 days HC: 328 mm: 37 weeks, 1 days AC: 316 mm: 35 weeks, 3 days FL: 62 mm: 32 weeks, 2 days CI: 76 FL/AC: 20 FL/BPD: 71 HC/AC: 1.04 age by current US: 35 weeks, 0 days. [place] by current US: 8.5.22. Estimated weight: 2501 grams, +/- 375 grams, 22.3 %. age by prior US: 36 weeks, 0 days. [place] by prior US: 7.29.22. Age by LMP: 35 weeks, 6 days. [place] by LMP: 7.30.22. US/OB Limited With Biometrics IMPRESSION: There is a single live intrauterine with a heart rate of 134 bpm. age by current US: 35 weeks, 0 days. [place] by current US: 8.5.22. Estimated weight: 2501 grams, +/- 375 grams, 22.3 %. Electronically Signed: Senthil Edwards MD at 17:06 EDT ,
== END | disposition home or self-care (01) ==
LOC: US 15:53
PROVIDERS: PCP Nurse Practitioner Family; Referring Provider Obstetrics & Gynecology; Visit Provider Obstetrics & Gynecology
DX: O26.843 Uterine size-date discrepancy, third trimester (principal); Z3A.35 35 weeks gestation of pregnancy
CPT/HCPCS: 76816

== ENCOUNTER → 2022-01-15 | Outpatient (CLI) | payer SELFPAY | END | disposition home or self-care (01) | LOC: LABSPEC 12:34 | PROVIDERS: PCP Nurse Practitioner Family; Visit Provider Obstetrics & Gynecology | DX: Z36.85 Encounter for antenatal screening for Streptococcus B (principal) | CPT/HCPCS: 87077; 87081; 87186 ==

== ENCOUNTER 2022-01-30 00:45 | Inpatient (IN) | payer SELFPAY ==
[2022-01-29 22:53] VITALS: BMI 26.4
[2022-01-29 23:41] VITALS: PULSE 79; O2SAT 98
[2022-01-29 23:46] VITALS: PULSE 88; O2SAT 98
[2022-01-29 23:51] VITALS: PULSE 67; O2SAT 99
[2022-01-29 23:56] VITALS: PULSE 81; O2SAT 99
[2022-01-30] VITALS (60 sets, daily range): BP systolic 85–207; BP diastolic 42–120; PULSE 44–112; RESP 14–16; TEMP 36.3–37.4; O2SAT 85–100
[2022-01-30] MEDS: LACTATED RINGERS 500 ML 999 ML IV ×2 (01:00→02:36)
[2022-01-30 01:11] LABS: Absolute Lymphocyte Count 1.97 X10^3/uL (0.83-4.51); Absolute Neutrophil Count 11.5 X10^3/uL (2.0-7.7); Basophil# 0.02 X10^3/uL; Basophil% 0.1 % (0-1); Eosinophil# 0.03 X10^3/uL; Eosinophils% 0.2 % (0-5); Hemoglobin 12.3 g/dL (12.0-15.0); Lymphocyte # 1.97 X10^3/ul (0.83-4.51); Lymphocyte % 13.7 % (19-41); Mean Corp Hgb Conc 33.2 g/dL (32-36); Mean Corpuscular Hgb 30.4 pg (27.0-32.0); Mean Corpuscular Volume 91.6 fL (81-99); Mean Platelet Vol. 9.9 fl (6.2-12.0); Monocyte# 0.78 X10^3/uL; Monocyte% 5.4 % (0-10); NRBC Flagged by Analyzer 0 % (0-5); Neutrophil # 11.53 X10^3/uL (2.7-7.7); Platelet Count 218 K/mm3 (150-450); RBC Distribution Width SD 47.2 fl (35.1-43.9); Red Blood Count 4.04 M/mm3 (4.2-5.4); White Blood Count 14.4 K/mm3 (4.4-11.0)
--- NOTE | 2022-01-30 01:20 | HP.PCM.OB_ITS ---
HPI - General General Date of Admission: 01/30/22 HPI Narrative HIPOLITO MAZARIEGOS, is a 26 y/o @ 39 weeks 4 days who presents to L&D with painful contractions and made cervical change from 1 to 3 m in 1 hr. She has a h/o successful after a breech section. She is requesting an epidural. Maternal Data Information [place] Calculator Estimated Delivery Date Method Current WG Current Estimate 02/02/22 LMP (Certain) 39w 4d Other Estimates 01/29/22 Ultrasound #1 40w 1d PFSH PFSH Home Medications docosahexaenoic acid 200 mg capsule ( DHA) 1 mg PO DAILY 02/20/18 [History Last Taken 10/01/18 18:00 1 tab] omega-3 fatty acids 1,000 mg capsule (Fish Oil Concentrate) 1,000 mg PO DAILY 11/13/18 [History Last Taken Unknown] ondansetron 4 mg disintegrating tablet 4 mg PO Q4H PRN nausea and vomiting #60 tabs 07/20/21 [Rx Last Taken Unknown] Allergy/AdvReac Type Severity Reaction Status Date / Time No Known Allergies Allergy Verified 01/22/22 13:17 Family History Mother Heart disease Diabetes Surgical History (Updated 01/30/22 @ 01:18 by Valerie Estevez) delivery delivered History of surgery Social History Smoking Status: Never smoker alcohol intake: never substance use type: does not use caffeine: No what type of physical activity do you participate in: walking frequency: 3-4 times per week seatbelt use: always do you feel safe at home: Yes additional social history: 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 Date Name GA/Weeks Outcome Route Bth Weight Gen Labor Lgth Anesthesia Del Locatn Provider FOB 12/11/15 Angel 40 live - full term 6lbs 12oz Male spinal Brent Ramon Vizcarra 10/03/18 Lisandra 39 live - full term 6lbs Female 6 hours ep idural [facility] Zackery Delivery Date: 12/11/15 Last Updated by: Alma Sinha MD breech. Delivery Date: 10/03/18 Last Updated by: Julieta Martell no complications Visit Details Expected Delivery Route/Plan (previous cs for breech, successful after x 1) patient counseled regarding risks/benefits of trial of labor versus repeat . ACOG/uptodate education given to patient. [] % likelihood of success per calculator TOLAC consent form signed: [] Labor Preferences- CB/BF classes: no labor support person: Zackery labor intervention preferences: [] pain management options preferred: epidural cut cord/dad catch: no : yes PP control planned: discussed discussed possible routes of delivery and associated risks: [] special requests: [] Plans Covid status: unknown, counseled regarding risk of covid in vs vaccination and declined vaccination Flu vaccine: declined Tdap vaccine: declines Rhogam: given LARC form signed: yes Problem list reviewed and updated with the most current plan of care details and appropriate orders placed. Relevant counseling for the gestational age provided. Continue routine care and follow up unless otherwise noted in visit notes/problem list details OB Flowsheet Initial Weight: 124 lb Date -?-?-?-?-?-?-?-?-?-?-?-?- EGA Weight BP Urine Prot -?-?-?-?-?-?-?-?-?-?-?-?- Glucose FHR FuHt Pres Dilation -?-?-?-?-?-?-?-?-?-?-?-?- Effaced St Visit Note 07/02/21 -?-?-?-?--?-?-?-?-?-?-?-?- 9w 2d 124 lb (+0 oz) 116/60 -?-?-?-?-?-?-?-?-?-?-?-?- 180 -?-?-?-?-?-?-?-?-?-?-?-?- SM- CRL 2.7cm co ns with LMP. small resolving subchorionic hematoma seen, rhogam given today. 08/30/21 -?-?-?-?-?-?-?-?-?-?-?-?- 17w 5d 132 lb 6 oz (+8 lb 6 oz) 104/74 Negative -?-?-?-?-?-?-?-?-?-?-?-?- Negative 153 -?-?-?-?-?-?-?-?-?-?-?-?- JV- planning ano ther JV- planning another . she has a concern for an ongoing lump on her sternum and inner aspect of right breast. This was present during last and ultrasound was done. She declines further imaging at this time. On exam there are no concerns for malignancy 09/19/21 -?-?-?-?-?-?-?-?-?-?-?-?- 20w 4d 137 lb 2 oz (+13 lb 2 oz) 108/64 Negative -?-?-?-?-?-?-?-?-?-?-?-?- Negative 145 -?-?-?-?-?-?-?-?-?-?-?-?- JV- normal anato my scan. weight reviewed per patient request and doing well. no complaints. 09/28/21 -?-?-?-?-?--?-?-?-?-?-?-?- 21w 6d 136 lb 2 oz (+12 lb 2 oz) 110/74 Negative -?-?-?-?-?-?-?-?-?-?-?-?- Negative 0 -?-?-?-?-?-?-?-?-?-?-?-?- SM- co lower freedom k pain and pressure, intermittent cramping. ua WNL. 10/19/21 -?-?-?-?-?-?-?-?-?-?-?-?- 24w 6d 140 lb 4 oz (+16 lb 4 oz) 100/70 Negative -?-?-?-?-?-?-?-?-?-?-?-?- Negative 24 -?-?-?-?-?-?-?-?-?-?-?-?- SM- no vb lof cr amping good fm no egular ctx 11/19/21 -?-?-?-?-?-?-?-?-?-?-?-?- 29w 2d 144 lb 4 oz (+20 lb 4 oz) 106/62 Trace -?-?-?-?-?-?-?-?-?-?-?-?- Negative 156 28 -?-?-?-?-?-?-?--?-?-?-?-?- MH-No Vb, LOF. G ood FM. 28 wk labs, rhogam and LARC. Declines tdap. 12/11/21 -?-?-?-?-?-?-?-?-?-?-?-?- 32w 3d 149 lb (+25 lb) 110/78 Negative -?-?-?-?-?-?-?-?-?-?-?-?- Negative 145 31 -?-?-?-?-?-?-?-?-?-?-?-?- JV- no lof ,agin al bleeding ,or dec fm. pt still wants to try for a . will need to sign consent with hospital. 12/25/21 -?-?-?-?-?-?-?-?-?-?-?-?- 34w 3d 147 lb (+23 lb) 110/70 Negative -?-?-?-?-?-?--?-?-?-?-?-?- Negative 146 32 Cephalic 0 -?-?-?-?-?-?-?-?-?-?-?-?- JV- pt is stuart mon lots of pressure. ptl precautions discussed, ordering growth scan for 36 weeks. 01/15/22 -?-?-?-?-?-?-?-?-?-?-?-?- 37w 3d 152 lb (+28 lb) 116/66 Negative -?-?-?-?-?-?-?-?-?-?-?-?- Negative 145 35 -?-?-?-?-?-?-?-?-?-?-?-?- -No VB, LOF or CTX. Declines cx exam. Good FM. GBS done 01/22/22 -?-?-?-?-?-?-?-?-?-?-?-?- 38w 3d 155 lb 4 oz (+31 lb 4 oz) 111/77 Negative -?-?-?-?-?-?-?-?-?-?-?-?- Negative 129 36 Cephalic 0 -?-?-?-?-?-?-?-?-?-?-?-?- 50 -2 JV- no lof , vaginal bleeding, or dec fm. no complaints. wants to wait until next week to discuss stripping membranes (if possible) or IOL. 01/29/22 -?-?-?-?-?-?-?-?-?-?-?-?- 39w 3d 156 lb (+32 lb) 114/78 Negative -?-?-?-?-?-?-?-?-?-?-?-?- Negative 130 37 Cephalic 1 .5 -?-?-?-?-?-?-?-?-?-?-?-?- 50 -2 SM- no vb lof good fm o nregular ctx ROS Constitutional Constitutional: Denies change in weight, fatigue, fever(s), headache(s), poor appetite or weakness Eyes Eyes: Denies blurry vision, change in vision, seeing flashes or spots in vision ENT HEENT: Denies dizziness, headache(s), loss taste/smell or sore throat Cardiovascular Cardiovascular: Denies chest pain, dizziness, dyspnea, irregular heart rhythm, leg edema, palpitations, rapid heart rate or vomiting Respiratory/Chest Respiratory/Chest: Denies chest tightness, cough, dyspnea or breast pain Gastrointestinal Gastrointestinal: Denies abdominal pain, anorexia, constipation, cramping, diarrhea, hemorrhoids, vomiting or weight changes Genitourinary Genitourinary: Denies dysuria, flank pain, genital lesions, genital pain, urinary frequency or urinary urgency Musculoskeletal Musculoskeletal: Denies back pain, difficulty walking, joint pain, limited range of motion, muscle cramps or numbness Integumentary Integumentary: Denies lesions or unusual bruising Neurologic Neurologic: Denies abnormal movements, abnormal speech, dizziness, numbness, seizure-like activity or syncope Psychiatric Psychiatric: Denies anxiety, behavioral changes, change in appetite, change in libido, cognitive impairment, confusion, depression, difficulty concentrating, hallucinations or suicidal thoughts Endocrine Endocrinology: Denies excessive sweating, polydipsia or polyuria Hematologic/Lymphatic Hematologic/Lymphatic: Denies easy bleeding, easy bruising or lymphadenopathy Allergic/Immunologic Allergic/Immunologic: Denies itchy eyes, lip swelling, seasonal rhinorrhea, rhinitis, throat swelling, tongue swelling, eczemia, wheezing or asthma Vital Signs Vital Signs Vital Signs: 01/29/22 23:41 01/29/22 23:41 01/29/22 23:46 Pulse Rate 79 88 Pulse Ox 98 01/29/22 23:46 01/29/22 23:51 01/29/22 23:51 Pulse Rate 67 Pulse Ox 98 99 01/29/22 23:56 01/29/22 23:56 01/30/22 00:01 Pulse Rate 81 76 Pulse Ox 99 01/30/22 00:01 01/30/22 00:06 01/30/22 00:06 Pulse Rate 89 Pulse Ox 98 99 Weight Weight: 154 lb 6 oz Body Mass Index (BMI) 26.4 Physical Exam Const alert, oriented x3, no apparent distress and healthy appearing General Appearance: cooperative; Negative for anxious HEENT normocephalic Face and Sinus: normal facial exam Eyes EOMs intact bilaterally and no scleral icterus General Eye: normal appearance of both eyes Neck full ROM and supple Lymph Lymphatic: no lymphadenopathy noted Chest Chest: abnormal inspection of the chest Resp normal respiratory effort Effort and Inspection: able to speak in complete sentences Cardio regular rate GI soft to palpation and non-tender Inspection: gravid Palpation: soft; Negative for tender external exam normal Amniotic Fluid: other cx: 3 cm per nurse fht: category 1 with moderate variability and 15x15 accels. one decel noted when moving. Back/Spine no CVA tenderness Extremity normal to inspection, full ROM and no clubbing, cyanosis or edema General Extremity: Negative for calf tenderness or edema Skin Lesions: no lesions Rashes: no rashes Psych mental status grossly normal Labs Labs Labs: Blood Type AB NEGATIVE Antibody Screen NEGATIVE Hct 37.0 % (37-47) Hgb 12.3 g/dL (12.0-15.0) Obstetrics US Syphilis Total Ab Pending Rubella IgG Antibody Reactive (Nonreactive) Hep Bs Antigen Negative (Negative) HIV 1&2 Antibody Non-Reactive (Nonreactive) Glucose 1 Hr 50 gm 100 mg/dL (70-140) Group B Strep DNA Negative (Negative) Rhogam given: Yes Miscellaneous Test Assessment & Plan (1) H/O section: COMMENT: for breech, after had successful x 1 (2) : QUALIFIERS: Weeks of gestation: 39 weeks Qualified Code(s): Z3A.39 - 39 weeks gestation of COMMENT: declines genetic and carrier screening. declines STD testing at NOB visit, consents for testing in labor. anatomy us nl, nl US (3) Supervision of other normal : COMMENT: PRR (SP labs) [place]: 02/02/22 BOY PC: Lisandra Ortiz Spouse: Zackery (4) Rh negative status during : QUALIFIERS: Trimester: third trimester Qualified Code(s): O26.893 - Other specified related conditions, third trimester; Z67.91 - Unspecified blood type, Rh negative COMMENT: RHOGAM given 07/02 due to ARIN, and plan repeat at 28 weeks, rhogam 11/19/21 (5) GBS (group B Streptococcus carrier), +RV culture, currently : COMMENT: ATB in Labor PLAN: Plan Patient presents IAL, plan expectant management for , pitocin/AROM PRN if needed. Pain management: plans epidural. GBS positive plan IV PCN. Management of any complications: none I have reviewed the [facility] and made any clinically relevant updates.
[2022-01-30] MEDS: Lactated Ringers 1,000 ML 200 ML IV (01:31)
[2022-01-30] MEDS: Ondansetron 4 MG/2 ML Vial IV (01:47)
[2022-01-30] MEDS: fentaNYL-bupivacaine (epidural) 100 ML BAG EPIDURAL (02:00)
[2022-01-30 02:31] LABS: HIV - WCH Non-Reactive (Nonreactive); Hepatitis B Surface Antigen Non-Reactive (Nonreactive); Hepatitis C Antibody Non-Reactive (Nonreactive)
[2022-01-30] MEDS: Oxytocin 30 units/NS 500 ml 30 UNITS/500 ML IV.SOLN 334 UNITS IV (03:57)
--- NOTE | 2022-01-30 04:02 | EX.PCM.OBRPT ---
Assessment & Plan (1) H/O section: COMMENT: for breech, after had successful x 1 (2) : QUALIFIERS: Weeks of gestation: 39 weeks Qualified Code(s): Z3A.39 - 39 weeks gestation of COMMENT: declines genetic and carrier screening. declines STD testing at NOB visit, consents for testing in labor. anatomy us nl, nl US (3) Supervision of other normal : COMMENT: PRR (SP labs) [place]: 02/02/22 BOY PC: Lisandra Ortiz Spouse: Zackery (4) Rh negative status during : QUALIFIERS: Trimester: third trimester Qualified Code(s): O26.893 - Other specified related conditions, third trimester; Z67.91 - Unspecified blood type, Rh negative COMMENT: RHOGAM given 07/02 due to ARIN, and plan repeat at 28 weeks, rhogam 11/19/21 (5) GBS (group B Streptococcus carrier), +RV culture, currently : COMMENT: ATB in Labor Maternal Data Information [place] Calculator Estimated Delivery Date Method Current WG Current Estimate 02/02/22 LMP (Certain) 39w 4d Other Estimates 01/29/22 Ultrasound #1 40w 1d Vaginal Delivery Maternal Presentation Maternal Presentation: Active Labor Operative Information Date of Procedure: 01/30/22 Pre-Operative Diagnosis: 39 weeks, active labor, prior section, desires TOLAC, Post-Operative Diagnosis: 39 weeks, active labor, prior section, desires TOLAC, Surgery / Procedure Performed: Type of Anesthesia: Epidural Estimated Blood Loss: 50cc Findings Description of Procedure: Patient began pushing and delivered the head in the MIKO presentation. The head was delivered atraumatically and a loose nuchal cord ?1 was identified and easily reduced over the infant's head. The anterior and posterior shoulders delivered without complication followed by the rest of the infant and the infant was placed on the maternal abdomen. Delayed cord clamping was employed for approximately 60 seconds. Cord was clamped and cut and gentle traction was applied to the cord and the placenta delivered spontaneously immediately following it was noted to be intact with three-vessel cord. The perineum and vagina were inspected and noted to have no laceration. EBL was 50cc. Patient and tolerated delivery well. Presentation: Vertex Amniotic Membrane Rupture Type: Spontaneous Amniotic Fluid Description: Clear Placental Delivery Description: Spontaneous Placenta Disposition: [facility] Cord Vessel Description: 3 Vessels Cord Entanglement: None Infant A Gender: Male (1 minute): 9 (5 minute): 9 Post Vaginal Delivery Medications Given After Delivery: IV Pitocin Episiotomy Description: None Laceration: None Complication Complications: None
--- NOTE | 2022-01-30 04:05 | PCM.DC ---
Discharge Instructions Diet Discharge Diet: No restrictions Activity Discharge Activity: Return to Normal Activity, May Not Drive (while taking narcotic pain medications.) and May Shower May resume sexual activity in: 4-6 weeks Dressing / Incision Call your doctor if your incision/area has: Continuous Slow Oozing, Sudden Increased Bleeding, Increased Pain/ Swelling, Increased Redness and Foul Smelling Discharge Follow Up Care Please Follow Up With: Karie Jorgensen DO When: Call [phone] to make an appointment with your doctor in 6 weeks. If you had elevated blood pressure or 4th degree laceration, you will need to be seen in 2 weeks. Test Results: Test results from this visit will be discussed in further detail at your follow-up appointment, if applicable. Discharge Plan Admission Admit Date/Time: 01/30/22 00:45 Primary Reason for Your Visit: vaginal delivery Attending Provider: Karie Jorgensen Primary Care Provider: Antony Douglass NP Discharge Orders/Prescriptions Prescriptions: No Action docosahexaenoic acid [ DHA] 200 mg capsule 1 mg PO DAILY omega-3 fatty acids [Fish Oil Concentrate] 1,000 mg capsule 1,000 mg PO DAILY ondansetron 4 mg tablet,disintegrating 4 mg PO Q4H PRN (Reason: nausea and vomiting) Qty: 60 2RF Referrals / Follow Up: Antony Douglass NP, [employer]ATOR-[employer] [Primary Care Provider] - Disposition Disposition (needs filled in before D/C Order can be placed): Home, Self Care
[2022-01-30 05:08] LABS: Chlamydia Trachomatis by PCR Negative (Negative); Neisserai gonorrhoeae by PCR Negative (Negative); Probe Check PASS; Sample Adequacy Control PASS; Specimen Processing Control PASS
[2022-01-30] MEDS: Acetaminophen 500 MG Tablet 1000 MG PO ×3 (06:10→20:39)
[2022-01-30] MEDS: 0.9% Saline Lock 10 ML Syringe IV (06:32)
[2022-01-30 08:37] LABS: Syphilis Antibodies Non-reactive
[2022-01-30] MEDS: Ibuprofen 600 MG Tablet PO ×3 (08:52→23:53)
--- NOTE | 2022-01-30 20:19 | NURSING ---
This RN rounds on pt around 1999 and while getting a blood pressure the patient declines sternly that she does not want any nurses coming in and doing vitals at 0000, that she has trouble falling asleep and she wants to make sure she gets enough rest. This rn re-educates the patient on the importance of every 4 hour vitals and pt still refuses the midnight vitals check. This RN complies to pts request and pt agrees to allow hrly checks on baby if i try to be very quiet and only peak my head and just to check on couplet quickly.
[2022-01-30] MEDS: Senna/Docusate Sodium 1 Tablet PO (23:53)
[2022-01-31 04:28] VITALS: BP 112/67; PULSE 70; RESP 16; TEMP 36.4
[2022-01-31] MEDS: Acetaminophen 500 MG Tablet 1000 MG PO ×2 (04:40→10:51)
[2022-01-31] MEDS: Ibuprofen 600 MG Tablet PO ×2 (07:34→14:00)
[2022-01-31 07:38] VITALS: BP 119/78; PULSE 73; RESP 14; TEMP 36.4; O2SAT 97
--- NOTE | 2022-01-31 10:07 | PCM.PN.OB ---
Subjective Subjective Patient doing well without complaints. Tolerating PO. Ambulating and voiding without difficulty. Feeding well. Denies chest pain, shortness of breath, calf pain/swelling, fevers, chills, lightheadedness. Objective Data Objective Data Vital Signs: Vital Signs Temp Pulse Resp BP Pulse Ox O2 Del Method 97.6 F L 73 14 119/78 97 Room Air 01/31/22 07:38 01/31/22 07:38 01/31/22 07:38 01/31/22 07:38 01/31/22 07:38 01/31/22 07:38 Oxygen Delivery Method Room Air Weight: 154 lb 6 oz Body Mass Index (BMI) 26.4 Intake & Output: Intake and Output for Last 24 Hours 01/29/22 01/30/22 01/31/22 23:59 23:59 23:59 Intake Total 1977.34 / 34 Output Total 1200 / 1200 Balance 778.34 / 778.34 Lab / Micro Data Result Diagrams: 01/30/22 01:00 Micro: Microbiology 01/30/22 01:20 Nasal Secretion SARS-CoV-2 Antigen (Rapid) - Final ROS Constitutional Constitutional: Denies chills, fatigue, fever(s), poor appetite or weakness Eyes Eyes: Denies blurry vision, change in vision, seeing flashes or spots in vision ENT HEENT: Denies dizziness, headache(s), loss taste/smell or sore throat Cardiovascular Cardiovascular: Denies chest pain, dizziness, dyspnea, irregular heart rhythm, palpitations or rapid heart rate Respiratory/Chest Respiratory/Chest: Denies chest tightness, cough, dyspnea or breast pain Gastrointestinal Gastrointestinal: Denies abdominal pain, constipation or vomiting Genitourinary Genitourinary: Denies dysuria or flank pain Musculoskeletal Musculoskeletal: Denies difficulty walking, joint pain, limited range of motion or numbness Neurologic Neurologic: Denies abnormal movements, abnormal speech, dizziness, numbness, seizure-like activity or syncope Psychiatric Psychiatric: Denies anxiety, behavioral changes, change in appetite, confusion, depression or suicidal thoughts Physical Exam Const alert, oriented x3 and no apparent distress General Appearance: cooperative and comfortable Resp normal respiratory effort Cardio regular rate GI normal to inspection, nondistended, normoactive bowel sounds GI Narrative: uterus is firm below umbilicus Palpation: soft Back/Spine no CVA tenderness and thoraco-lumbar ROM normal Extremity normal to inspection, no clubbing, cyanosis or edema, no calf tenderness and no pedal edema Psych mental status grossly normal, thought process normal, cooperative, affect normal, speech normal, activity/motor behavior normal, denies homicidal ideation and denies suicidal ideation Assessment & Plan (1) Status post vaginal delivery: COMMENT: successful 01/30/22 - AGATA HEALY
[2022-01-31] MEDS: Senna/Docusate Sodium 1 Tablet PO (10:52)
[2022-01-31 13:40] VITALS: BP 100/61; PULSE 77; RESP 16; TEMP 37; O2SAT 100
== END 2022-01-31 15:55 | disposition home or self-care (01) | DRG 807 ==
LOC: WPOUT 01-31 08:36
PROVIDERS: Admitting Provider Obstetrics & Gynecology; PCP Nurse Practitioner Family; Visit Provider Obstetrics & Gynecology
DX: O34.219 Maternal care for unspecified type scar from previous cesarean delivery (principal); Z37.0 Single live birth; O26.893 Other specified pregnancy related conditions, third trimester; Z67.31 Type AB blood, Rh negative; O69.81X0 Labor and delivery complicated by cord around neck, without compression, not applicable or unspecified; O99.824 Streptococcus B carrier state complicating childbirth; Z3A.39 39 weeks gestation of pregnancy; Z87.59 Personal history of other complications of pregnancy, childbirth and the puerperium; Z28.310 Unvaccinated for COVID-19; Z28.21 Immunization not carried out because of patient refusal
CPT/HCPCS: 59050; 76815; 85025; 86703; 86780; 86803; 86850; 86900; 86901; 87340; 87426; 87491; 87591; 99218; J7120; A4216; G0378; J2405